=== PATIENT | female | born 1975 | race African-American/Black ===

== ENCOUNTER 2020-06-18 07:37 | Emergency (ER) | payer OTHER, SELFPAY ==
--- NOTE | ~2020-06-18 | XR_ITS ---
EXAMINATION: XR chest 1V portable EXAM DATE: 06/18/2020 08:15 INDICATION: Chest pain. TECHNIQUE: Portable AP frontal chest x-ray was obtained. There is no prior study for comparison. FINDINGS: The lungs are clear. There are no pleural effusions. Cardiac silhouette is prominent but magnified on this AP technique. There is no pneumothorax suspected. The bones and soft tissues are unremarkable. There are cholecystectomy clips. IMPRESSION: No acute cardiopulmonary findings. Reviewed, dictated and finalized at location A.
--- NOTE | ~2020-06-18 | CT_ITS ---
EXAMINATION: CTA chest PE protocol DATE: 06/18/2020 09:46 INDICATION: Chest tightness, COVID positive. TECHNIQUE: Computed tomography angiography (CTA) of the chest was performed with 100 mL Omnipaque-350 intravenous contrast timed to evaluate the pulmonary arteries. Coronal maximum intensity projection 3D-reconstructions were created by the technologist. The dose-length product (DLP) was 387.26 mGy-cm. Automated exposure control and iterative reconstruction technique were employed. COMPARISON: None. FINDINGS: The pulmonary arteries are well-opacified. The areas of apparent filling defect in the righ t middle lobe pulmonary arteries appear to be related to streak artifact from contrast bolus injectio n. No pulmonary emboli are identified. No pathologically enlarged thoracic lymph nodes are identified . The heart size is normal. The lungs are free of acute airspace opacities. There is a bmaih-xf-ofkcy ate sized hiatal hernia. The gallbladder is surgically absent. IMPRESSION: 1. No pulmonary embolism or acute cardiopulmonary abnormality. Reviewed, dictated and finalized at location B.
--- NOTE | 2020-06-18 07:42 | ECG_ITS ---
Measurements Intervals [facility] [place] Rate: 91 P: 33 MD: 138 QRS: -2 QRSD: 90 T: -15 QT: 363 QTc: 448 Interpretive Statements SINUS RHYTHM BORDERLINE ST-T WAVE ABNORMALITY- INF/LAT LEADS BORDERLINE ECG Electronically Signed On 06-18-2020 11:35:17 CDT by Bryce Pradhan D.O.
[2020-06-18 07:43] VITALS: BP 204/121; PULSE 99; RESP 20; TEMP 37.1; O2SAT 98
[2020-06-18 07:49] VITALS: PULSE 96
[2020-06-18] MEDS: ASPIRIN 81 MG CHEWABLE TABLET 324 MG PO (07:51)
[2020-06-18 08:00] LABS: Basophils Absolute Auto 0.1 K/mm3 (0.0-0.1); Basophils Percent Auto 0.5 % (0.2-1.2); Eosinophils Absolute Auto 0.1 K/mm3 (0-0.3); Eosinophils Percent Auto 0.8 % (0-4.4); Hematocrit 33.9 % (37.0-47.0); Hemoglobin 10.7 g/dL (12.0-15.0); Immature Granulocyte Absolute 0.03 K/mm3 (0.00-0.031); Immature Granulocyte Percent A 0.3 % (0-0.5); Lymphocytes Absolute Auto 2.32 K/mm3 (0.9-3.2); Lymphocytes Percent Auto 23.1 % (18.3-44.2); Mean Corpuscular HGB Conc 31.6 g/dl (32-36); Mean Corpuscular Volume 79.2 fl (80-100); Mean Platelet Volume 10.2 fl (7.4-10.4); Monocytes Absolute Auto 0.5 K/mm3 (0.1-0.6); Monocytes Percent Auto 5.3 % (2.6-8.5); Platelet Count Result 416 k/mm3 (150-375); Red Blood Count 4.28 M/mm3 (4.2-5.4); Red Cell Distribution Width 15.8 % (11.5-14.5); White Blood Count 10.1 K/mm3 (4.5-10.0)
--- NOTE | 2020-06-18 08:03 | ED.CHESTPAIN ---
HPI - Chest Pain General Chief Complaint: Chest Pain Stated Complaint: covid, chest pressure Time Seen by Provider: 06/18/20 07:40 Source: RN notes reviewed History of Present Illness HPI narrative: Patient presents emergency department from home for chest pain. Patient states she is had midsternal chest pain in the upper chest for the past 2 days. States the pain waxes and wanes in intensity but never completely resolves. States the pain does not radiate. Nothing makes the pain better or worse. Patient states she did test positive for COVID-19 on 10 June as she had been in contact with somebody with COVID but is been asymptomatic. She denies any fevers or chills cough abdominal pain nausea vomiting or any other symptoms. She states she does have a history of high blood pressure and just took her blood pressure medication Related Data Allergies Allergy/AdvReac Type Severity Reaction Status Date / Time erythromycin base Allergy Unknown Difficulty Verified 06/18/20 07:47 Breathing Penicillins Allergy Unknown Difficulty Verified 06/18/20 07:47 Breathing Review of Systems Review of Systems: Narrative: Gen.: Denies fevers or chills Eyes: Denies eye pain or visual change ENT: Denies congestion Respiratory: Denies shortness of breath or cough CV: See HPI GI: Denies abdominal pain nausea, emesis or diarrhea Musculoskeletal: Denies back pain or muscle pain Neuro: Denies numbness, tingling, weakness or focal weakness Skin: Denies rash Except as documented, all other systems reviewed and negative [facility] Social History Social History Smoking status: Never smoker Alcohol intake: current Gender identity (if verbalized by the patient): Female Exam Narrative: Exam Narrative: APPEARANCE: No acute distress, nontoxic, resting in bed EYES: EOMI HEENT: Normocephalic, atraumatic, OMM RESPIRATORY: No respiratory distress Clear to auscultation bilaterally with no rhonchi wheezing or rales. Chest: Tender palpation of the bilateral anterior chest wall pain increased with deep inspiration CARDIOVASCULAR: Regular rate and rhythm without murmurs rubs or gallops. ABDOMINAL: Soft, nontender, nondistended, no rebound or guarding MUSCULOSKELETAl: Moves all extremities. No clubbing, cyanosis or edema. NEURO: Awake and alert. Following commands, speech normal, no focal deficits SKIN:: Warm, dry. No rashes lesions or abrasions PSYCHIATRIC: Normal affect/mood, Course Course Emergency Course: Patient states pain is resolved at this time Discussed with patient results of workup and diagnosis. Discussed need for follow-up with primary care, proper use of medication, and reasons to return to the emergency department. Patient understands and agrees to current treatment plan Vital Signs Vital signs: Vital Signs Temperature 98.7 F 06/18/20 07:43 Pulse Rate 99 06/18/20 07:43 Respiratory Rate 20 06/18/20 07:43 Blood Pressure 204/121 H 06/18/20 07:43 Pulse Oximetry 98 06/18/20 07:43 Temperature 98.7 F 06/18/20 07:43 Pulse Rate 84 06/18/20 13:54 Respiratory Rate 18 06/18/20 13:54 Blood Pressure 147/85 H 06/18/20 13:54 Pulse Oximetry 98 06/18/20 13:54 MDM - Chest Pain MDM Narrative Medical decision making narrative: Patient's EKGs and labs are without significant high risk changes. Cardiac risk factors reviewed. Patient is felt likely low risk for ACS and reasonable for further risk stratification testing as an outpatient. CTA shows no signs of aneurysm or pneumonia or pulmonary embolism patient is felt to be a reasonable candidate for continued evaluation as an outpatient. Pain is been constant for 2 days with 2- troponins in the ED Lab Data Result diagrams: 06/18/20 07:55 06/18/20 07:55 Labs: Lab Results 06/18/20 06/18/20 06/18/20 Range/Units 07:55 07:55 07:55 WBC 10.1 H (4.5-10.0) K/mm3 RBC 4.28 (4.2-5.4)
[2020-06-18] MEDS: MAG HYDROX/AL HYDROX/SIMETH 30 ML UDC PO (08:04)
[2020-06-18] MEDS: LIDOCAINE HCL 2% VISC SOLN 15 ML UDC PO (08:04)
[2020-06-18 08:12] LABS: INR 1.1; Prothrombin Time 13.6 Seconds (11.1-14.7)
[2020-06-18 08:13] LABS: Partial Thromboplastin Time 26.7 SECONDS (22.3-36.8)
[2020-06-18 08:17] LABS: D Dimer 0.27 ug/mL (<0.48)
[2020-06-18 08:23] LABS: Alanine Aminotransferase 16 U/L (4-35); Albumin Level 4.2 g/dL (3.5-5.1); Alkaline Phosphatase 128 U/L (38-126); Anion Gap 12.7 mmol/L (7-16); Aspartate Amino Transferase 26 U/L (14-36); Bilirubin,Total 0.6 mg/dL (0.2-1.3); Blood Urea Nitrogen 10 mg/dL (7-17); Calcium 9.1 mg/dL (8.4-10.2); Carbon Dioxide 25 mmol/L (22-30); Chloride 101 mmol/L (98-107); Estimated CRCL calculation 90 ml/min; Estimated Glomerular Filt Rate > 60; Glucose 209 mg/dL (65-105); Lipase 77 U/L (23-300); Potassium 3.7 mmol/L (3.4-5.0); Sodium 135 mmol/L (137-145)
[2020-06-18 08:29] LABS: Troponin I < 0.012 ng/mL (0.000-0.034)
[2020-06-18 09:01] VITALS: BP 174/104; PULSE 85; RESP 16; O2SAT 98
[2020-06-18 11:22] LABS: Troponin I < 0.012 ng/mL (0.000-0.034)
[2020-06-18 11:28] VITALS: BP 166/77; PULSE 100; RESP 18; O2SAT 99
[2020-06-18] MEDS: KETOROLAC 30 MG/ML VIAL (*BKC) IV PUSH (12:23)
[2020-06-18 12:25] VITALS: BP 166/77; PULSE 80; RESP 20; O2SAT 98
[2020-06-18 13:54] VITALS: BP 147/85; PULSE 84; RESP 18; O2SAT 98
== END 2020-06-18 14:19 | disposition home or self-care (01) ==
PROVIDERS: Emergency Provider Emergency Medicine; PCP Internal Medicine
DX: U07.1 COVID-19 (principal); R07.89 Other chest pain; R94.31 Abnormal electrocardiogram [ECG] [EKG]
CPT/HCPCS: 36415; 71045; 71275; 80048; 80076; 81025; 83690; 84484; 85025; 85380; 85610; 85730; 93005; 96365; 96375; 99284; A9270; J0131; J1885; Q9967

== ENCOUNTER 2021-05-31 07:25 | Outpatient (CLI) | payer OTHER, SELFPAY ==
[2021-05-31 08:02] LABS: Hematocrit 32.4 % (37.0-47.0); Hemoglobin 9.5 g/dL (12.0-15.0); Mean Corpuscular HGB Conc 29.3 g/dl (32-36); Mean Corpuscular Hemoglobin 21.9 pg (26-34); Mean Corpuscular Volume 74.7 fl (80-100); Mean Platelet Volume 10.2 fl (7.4-10.4); Platelet Count Result 473 k/mm3 (150-375); Red Blood Count 4.34 M/mm3 (4.2-5.4); Red Cell Distribution Width 17.8 % (11.5-14.5); White Blood Count 9.1 K/mm3 (4.5-10.0)
== END 2021-05-31 07:26 | disposition home or self-care (01) ==
LOC: ANHLAB 07:28
PROVIDERS: PCP Internal Medicine; Visit Provider Obstetrics & Gynecology
DX: D64.9 Anemia, unspecified (principal)
CPT/HCPCS: 36415; 85027

== ENCOUNTER 2021-06-05 07:48 | Outpatient (CLI) | payer OTHER, SELFPAY | END 2021-06-05 07:49 | disposition home or self-care (01) | PROVIDERS: PCP Internal Medicine; Visit Provider Obstetrics & Gynecology | DX: Z01.818 Encounter for other preprocedural examination (principal); N85.2 Hypertrophy of uterus | CPT/HCPCS: 36415; 86850; 86900; 86901 ==

== ENCOUNTER 2021-06-09 00:43 | Day surgery (SDC) | payer OTHER, SELFPAY ==
[2021-06-04 09:43] VITALS: BMI 35.4
--- NOTE | 2021-06-08 16:38 | PM.IMHP ---
H&P: HPI History of Present Illness Date/Time: 06/08/21 16:38 She has a history symptomatic fibroid uterus with menorrhagia and anemia and history of anovulatory cycles. She was diagnosed with endometritis and symptoms persisted after antibiotic treatment. She had an endometrial biopsy which showed endocervical polyp no hyperplasia or cancer. Ultrasound did show fibroid uterus which the fibroids have enlarged since her last ultrasound in 2014. She was informed that being in the menopause transition that her periods may occur irregularly and may have menstrual flow that can range from light to heavy for several year before menopause. She was given option of expectant management, endometrial ablation, trial of progesterone only control pill or Nexplanon or Depoprovera, option of IUD which she declined the above. She does have a history of anemia and is taking iron supplement. She does not want to take control pills and was told in past IUD not option due to history of ectopic. I discussed with her the IUD is not an absolute contraindication. Discussed risk of IUD. She declines and desires definitive treatment. She is scheduled for laparoscopic assisted vaginal hysterectomy. She was informed of risk of procedure to include risk of bleeding, infection, injury to other organs in the area and need to repair and or remove those organs if necessary. Risk of blood transfusion, longer than anticipated hospital stay. Risk of blood clots in the legs or lungs, risk of . She was informed that she may have multiple etiologies of her pain and their is a risk that her pain may not be completely resolved. Risk of injury to bowel or bladder and need to repair or risk of further surgery. Discussed pre and post op precautions. Her questions were answered. Chief Complaint: Heavy periods Review of Systems Review of Systems: All systems reviewed & are unremarkable except as noted in HPI and below Cardiovascular: Cardiovascular: Reports no additional cardiovascular complaints, Denies chest pain and Denies dyspnea Respiratory: Respiratory: Reports no additional respiratory complaints and Denies dyspnea Gastrointestinal: Gastrointestinal: Reports abdominal pain, Denies change in bowel habits, Denies diarrhea, Denies nausea and Denies vomiting Genitourinary: Genitourinary: Reports pelvic pain Musculoskeletal: Musculoskeletal: Reports back pain Integumentary/Breasts: Skin/Breast: Reports system reviewed and no additional complaints, except as docu Neurologic: Reports system reviewed and no additional complaints, except as documented [facility] Past Medical History Medical History Essential hypertension History of ectopic Missed Vaginal delivery x 3 1 that Surgical History Surgical History H/O bilateral breast reduction surgery History of cholecystectomy Previous section Family History Family History Mother Diabetes mellitus Hypertension Family history of congestive heart failure Family history of type 2 diabetes mellitus Grandparent Hypertension, Onset Age: 94 Family history of Alzheimer's disease, Onset Age: 94 Social History Social History Smoking status: Never smoker Alcohol intake: current Alcohol use details: 2-3 DRINKS PER MIONTH Living arrangements: with family Gender identity (if verbalized by the patient): Female Meds Home Medications and Allergies Home Medications Medication Instructions Recorded Confirmed Type amlodipine 10 mg tablet 10 mg PO DAILY #90 tablet 11/27/20 06/04/21 Rx losartan 50 mg tablet 50 mg PO DAILY #90 tablet 11/27/20 06/04/21 Rx ferrous sulfate [Iron (ferrous 325 mg PO DAILY 06/04/21 06/04/21 History sul
[2021-06-09] VITALS (13 sets, daily range): BP systolic 91–137; BP diastolic 45–77; PULSE 59–96; RESP 14–25; TEMP 36.3–37.1; O2SAT 92–100
[2021-06-09] MEDS: ACETAMINOPHEN 500 MG TABLET 1000 MG PO (06:32)
[2021-06-09] MEDS: LACTATED RINGERS 1,000 ML 30 ML IV CONT ×2 (06:37→10:49)
[2021-06-09] MEDS: KETOROLAC 15 MG/ML VIAL (*BKC) IV PUSH (06:38)
--- NOTE | 2021-06-09 07:04 | WPDHPUPDATE1 ---
History and Physical Update Update Date/Time: 06/09/21 07:04 History and Physical has been reviewed, including an updated exam of the patient. There are NO changes in the patient's condition. Risks, benefits, and alternatives have been discussed and questions answered. Patient agrees to proceed with procedure.
[2021-06-09 07:17] LABS: Beta HCG Quantitative < 2.39 mIU/ML
[2021-06-09] MEDS: ceFAZolin 2 GM/D5W 50 ML 2 GM/50 ML BAG IVPB (07:25)
[2021-06-09] MEDS: SCOPOLAMINE 1.5 MG PATCH TRANSDERM (07:46)
[2021-06-09] MEDS: BUPIVACAINE HCL 0.5% PF 30 ML VIAL INFILTRATE (07:56)
--- NOTE | 2021-06-09 11:09 | PM.OP ---
Procedure Note - Brief Procedure Note - Brief Date of procedure: 06/09/21 Pre-op diagnosis: abn uterine bleeding 1. Fibroid uterus symptomatic 2. menorrhagia.3. anemia Post-op diagnosis: same Procedure performed: 1.Robotic assisted laparoscopic hysterectomy with bilateral salpingectomy 2. Lysis of adhesions. Anesthesia: GETA Surgeon: Aden Garcia MD Estimated blood loss (mL): 20 IV fluids (mL): 1,300 Urine output (mL): 325 Drains: No Packing: No Pathology: yes (uterus with cervix and right and left fallopian tubes) Complications: No immediate complications Condition: stable Disposition: floor Findings: Adhesions of omentum to mid abdominal wall. Uterus enlarged. Normal fallopian tubes and ovaries.
[2021-06-09] MEDS: HYDROmorphone HCL INJ (*CRX) 1 MG/ML SYR 0.5 MG IV PUSH ×2 (11:51→12:07)
--- NOTE | 2021-06-09 12:04 | W.PM.PROC2 ---
Procedure Note - Detailed Date of Procedure 06/09/21 Pre-op Diagnosis abn uterine bleeding Post-op Diagnosis other ( Pelvic adhesions.) Procedure Performed 1.Robotic assisted laparoscopic vaginal hysterectomy with bilateral salpingectomy 2. Lysis of adhesions. Surgeon Aden Garcia MD [facility] Dequan Garcia Anesthesia general Indications patient with a history of symptomatic fibroid uterus with intermittently heavy periods and anemia. Normal endometrial biopsy. Patient declined all other options and is not a good candidate for combined control pills due to her medical history and not an optimal candidate for IUD. She desired definitive treatment with hysterectomy. Findings Large band of adhesions from the omentum to the middle of the abdomen below the umbilicus. Small adhesion of the left adnexa to the left sidewall. This was lysed to free up the left fallopian tube. The uterus was enlarged. The right and left ovary were normal appearing. The right and left fallopian tubes were normal appearing. Uterus measured 166 grams. Description of Procedure After informed consent was obtained patient was taken to the operating room and general endotracheal anesthesia was administered. She was placed in low lithotomy position and prepped and draped in sterile fashion. Prior to being prepped and draped and exam under anesthesia was performed and no masses were palpated uterus palpated to be approximately 10 week size. Attention was then turned to the vagina. A Plunkett catheter had been placed in bladder. Weighted speculum was placed in the vagina. The anterior vaginal wall was retracted with a retractor. A single-tooth tenaculum was placed on the anterior lip of the cervix the uterus was sounded to 9cm the cervix was dilated with a dilator. A size 8 uterine manipulator was inserted and the bulb inflated. A 3.5 cm colp cup was secured in the vagina. Prior to securing the cup the single-tooth tenaculum was removed from the cervix. Attention was then turned to the abdomen with sterile glove a horizontal incision was made 2cm above the umbilicus with the scalpel. The subcutaneous tissue was dissected down with S retractors the anterior fascia was grabs and incised the posterior fascia was then grasped and incised and the peritoneal was entered. The area was palpated with the finger and there was no adhesions at that site that was palpated there were some what omental adhesions to the mid abdomen that was palpated. A Hisson some port was inserted into abdomen after the fascial edges were secured with 0 Vicryl. The 0 Vicryl was secured to the port. A pneumoperitoneum of 15 mm per mercury was obtained and the robotic camera was inserted into this port. Attention was then turned to the left side of the abdomen, lidocaine injected subcutaneously and an 8mm robotic port was inserted under laparoscopic visualization. Attention was then turned to the right side parallel to this and lidocaine was injected and an incision was made and a 8mm robotic port was inserted under laparoscopic visualization. Superior and medial to this a carpenter assistant port was inserted under laparoscopic visualization. Endo Anayeli were then used to remove adhesions of the omentum to the abdominal wall that was immediately beneath the supra umbilical port. Hemostasis was noted. The patient was placed in Trendelenburg to allow the intestinal organs out of the pelvis. The robotic arms were then attached to the ports. Attention was then turned to the surgery console. Attention was turned to the right round ligament which was cauterized and cut the anterior leaf of the broad ligament was further dissected anteriorly to the vesicouterine peritoneum. Some adhesions of the bladder from the prior was lysed.The bladder was dissected from the lower uterine segment anteriorly attention was then attention was turned to the right adnexa. The right fallopian tube was cauterized from th
[2021-06-09] MEDS: ONDANSETRON INJ 4 MG/2 ML VIAL IV PUSH (12:16)
--- NOTE | 2021-06-09 12:44 | SUR.PHASEI ---
[id number] sbar faxed floor notified
[2021-06-09] MEDS: DEXTROSE 5%/LACTATED RINGERS 1,000 ML 125 ML IV CONT (13:57)
--- NOTE | 2021-06-09 14:28 | PC.NURSE ---
1307-This patient, Deyanira Jackson, was admitted to OB 2nd Floor Room 289-00. Patient/family oriented to hospital policies and general routines including ID bracelet, bed and alarms, visiting hours, pain management, procedures, bathroom and other care routines, personal items, smoking policy, room service/diet, and visiting hours. Information on how to activate the Rapid Response Team has been discussed. Patient/Family are encouraged to report perceived risks to care and to ask questions if they do not understand what they are told or what they should do.
[2021-06-09] MEDS: KETOROLAC 30 MG/ML VIAL (*BKC) IV PUSH (16:34)
[2021-06-10 01:15] VITALS: BP 135/63; PULSE 90; RESP 16; TEMP 37.1; O2SAT 97
[2021-06-10 03:30] VITALS: BP 140/69; PULSE 84; RESP 16; TEMP 37.1; O2SAT 96
[2021-06-10] MEDS: IBUPROFEN 600 MG TABLET PO (04:20)
[2021-06-10 09:00] VITALS: BP 106/78; PULSE 85; RESP 16; TEMP 36.9; O2SAT 100
[2021-06-10 09:30] VITALS: PULSE 85; RESP 16; O2SAT 100
[2021-06-10] MEDS: LOSARTAN POTASSIUM 50 MG TABLET PO (09:32)
[2021-06-10] MEDS: HYDROcodone/acetaminophen (*CRX) 5-325 MG TABLET 1 TAB PO (09:35)
[2021-06-10] MEDS: amLODIPine BESYLATE 5 MG TABLET 10 MG PO (09:35)
[2021-06-10] MEDS: KETOROLAC 10 MG TABLET PO (11:07)
== END 2021-06-10 15:59 | disposition home or self-care (01) ==
LOC: ANHSURGERY 07:48 → ANHOB2 17:29
PROVIDERS: Anesthesiology; PCP Internal Medicine; Visit Provider Obstetrics & Gynecology
PROC: (CPT 58552; principal; 2021-06-09 07:30)
DX: N92.1 Excessive and frequent menstruation with irregular cycle (principal); D64.9 Anemia, unspecified; N80.0 Endometriosis of uterus; D25.9 Leiomyoma of uterus, unspecified; N73.6 Female pelvic peritoneal adhesions (postinfective); I10 Essential (primary) hypertension
CPT/HCPCS: 58552; S2900; 36415; 84702; 86850; 86900; 86901; 88307; 99199; A9270; J0131; J0690; J1100; J1170; J1885; J2250; J2405; J2704; J2710; J7030; J7120; J7121

== ENCOUNTER 2022-09-14 00:40 | Day surgery (SDC) | payer OTHER, SELFPAY ==
[2022-08-29 14:10] VITALS: BMI 37.4
[2022-09-14 06:53] VITALS: BP 143/85; PULSE 99; RESP 18; TEMP 36.6; O2SAT 99
[2022-09-14] MEDS: LACTATED RINGERS 1,000 ML 150 ML IV CONT (07:02)
[2022-09-14 07:06] LABS: Glucose Point of Care 197 mg/dl (65-105)
--- NOTE | 2022-09-14 07:33 | WPDANESEPPF ---
Anes - Initial Pre Proc Eval Procedure: Operation Date: 09/14/22 08:00 Proposed Procedures p Screening Colonoscopy - Michael Veras MD Date/Time: 09/14/22 07:33 Surgeon: Michael Veras MD Pre Op Diagnosis: neoplasm screening Patient Data Age: 47 Gender: F Height: 1.52 m Weight: 88.1 kg Last Vital Signs Temp 97.9 F 09/14/22 06:53 Pulse 99 09/14/22 06:53 Resp 18 09/14/22 06:53 BP 143/85 H 09/14/22 06:53 Pulse Ox 99 09/14/22 06:53 O2 Del Method Room Air 09/14/22 06:53 Allergies Allergy/AdvReac Type Severity Reaction Status Date / Time shellfish derived Allergy Severe Swelling Verified 09/14/22 06:52 of Lip/Tongue/Throat erythromycin base Allergy Unknown Difficulty Verified 09/14/22 06:52 Breathing Penicillins Allergy Unknown Difficulty Verified 09/14/22 06:52 Breathing Home Medications Medication Instructions Recorded Confirmed Type amlodipine 10 mg tablet 10 mg PO DAILY #90 tabs 11/27/20 08/29/22 Rx losartan 50 mg tablet 50 mg PO DAILY #90 tabs 11/27/20 08/29/22 Rx atorvastatin 40 mg tablet 40 mg PO HS 08/29/22 08/29/22 History metformin 500 mg tablet 500 mg PO BID 08/29/22 08/29/22 History trazodone 50 mg tablet 25 mg PO HS 08/29/22 08/29/22 History Laboratory Tests 09/14/22 07:03 POC Capillary Glucose 197 mg/dl H mg/dl (65-105) Patient hx anesthesia problems: none Family hx anesthesia problems: none Results Review: All pre-operative results and documents have been reviewed as part of the pre-operative evaluation. [facility] Past Medical History Medical History Essential hypertension History of ectopic Missed Vaginal delivery x 3 1 that Surgical History Surgical History H/O bilateral breast reduction surgery History of cholecystectomy Previous section S/P partial hysterectomy Family History Family History Mother Diabetes mellitus Hypertension Family history of congestive heart failure Family history of type 2 diabetes mellitus Grandparent Hypertension, Onset Age: 94 Family history of Alzheimer's disease, Onset Age: 94 Social History Social History Smoking status: Never smoker Alcohol intake: current Drinks per week: 1 Alcohol use details: 2-3 DRINKS PER MIONTH Substance use: former Substance use type: marijuana Living arrangements: with family Gender identity (if verbalized by the patient): Female Spiritual care concerns: No Anes - Eval Final PreProcedure Day of Procedure 09/14/22 07:33 Patient weight: obese Heart: regular rate and rhythm Lungs: clear to auscultation Airway: Mallampati scale class II Neurological: alert and oriented Last oral intake: >/= 8 hours ASA classification: III Emergent: no Anesthetic plan: proceed Anesthesia type and monitoring: general GIVS and standard monitoring Results Review: All pre-operative results and documents have been reviewed as part of the pre-operative evaluation. Informed Consent: The patient's anesthetic plan and its attendant risks and benefits were discussed with the patient/family/POA. Questions were solicited and answers provided to the satisfaction of the patient/family/POA.
--- NOTE | 2022-09-14 07:58 | PM.HPGS ---
History of Present Illness History of Present Illness Consent: Risks, benefits, and alternatives have been discussed and questions answered. Patient agrees to proceed with procedure. Chief complaint: neoplasm screening Narrative: Deyanira Jackson is a 47 year old female here for first screening colonoscopy Review of Systems Constitutional: Constitutional: Denies headache(s) and Denies weakness Eyes: Eyes: Denies blurry vision ENT: Reports Normal hearing present, Denies headache(s) and Denies neck pain Cardiovascular: Cardiovascular: Denies chest pain and Denies dyspnea Respiratory: Respiratory: Denies dyspnea Gastrointestinal: Gastrointestinal: Reports no additional gastrointestinal complaints Genitourinary: Genitourinary: Denies dysuria Musculoskeletal: Musculoskeletal: Denies neck pain Integumentary/Breasts: Skin/Breast: Denies dry skin Neurologic: Reports Normal hearing present, Denies headache(s) and Denies weakness Psychiatric: Psychiatric: Denies anxiety Endocrine: Endocrine: Denies change in body appearance Hematologic/Lymphatic: Hematologic/Lymphatic: Denies easy bleeding Allergic/Immunologic: Allergic/Immunologic: Denies urticaria PMFSH Past Medical History Medical History (Updated 09/14/22 @ 07:58 by Michael Veras MD) Colon cancer screening Essential hypertension History of ectopic Missed Vaginal delivery x 3 1 that Surgical History Surgical History H/O bilateral breast reduction surgery History of cholecystectomy Previous section S/P partial hysterectomy Family History Family History Mother Diabetes mellitus Hypertension Family history of congestive heart failure Family history of type 2 diabetes mellitus Grandparent Hypertension, Onset Age: 94 Family history of Alzheimer's disease, Onset Age: 94 Social History Social History Smoking status: Never smoker Alcohol intake: current Drinks per week: 1 Alcohol use details: 2-3 DRINKS PER MIONTH Substance use: former Substance use type: marijuana Living arrangements: with family Gender identity (if verbalized by the patient): Female Spiritual care concerns: No Meds Home Medications and Allergies Home Medications Medication Instructions Recorded Confirmed Type amlodipine 10 mg tablet 10 mg PO DAILY #90 tabs 11/27/20 08/29/22 Rx losartan 50 mg tablet 50 mg PO DAILY #90 tabs 11/27/20 08/29/22 Rx atorvastatin 40 mg tablet 40 mg PO HS 08/29/22 08/29/22 History metformin 500 mg tablet 500 mg PO BID 08/29/22 08/29/22 History trazodone 50 mg tablet 25 mg PO HS 08/29/22 08/29/22 History Allergies Allergy/AdvReac Type Severity Reaction Status Date / Time shellfish derived Allergy Severe Swelling Verified 09/14/22 06:52 of Lip/Tongue/Throat erythromycin base Allergy Unknown Difficulty Verified 09/14/22 06:52 Breathing Penicillins Allergy Unknown Difficulty Verified 09/14/22 06:52 Breathing Vital Signs Vital Signs - 24 hr 09/14/22 06:53 Temperature 97.9 F Pulse Rate 99 Respiratory Rate 18 Blood Pressure 143/85 H Pulse Oximetry 99 Oxygen Delivery Room Air Exam Const: General: comfortable and no acute distress HENMT: Face/Nose/Sinus: Normal nares present Eyes: General: appearance normal, both eyes and all related structures Neck: Neck: no JVD Resp: Auscultation: clear to auscultation bilaterally Cardio: Rate: regular rate Rhythm: regular rhythm GI: Inspection: non-distended GI Palp: Yes Soft to palpation Skin: General skin exam: normal color Neuro: General: gait normal Speech: normal speech Extrem: General: normal to inspection Psych: Mental Status: mental status grossly normal Assessment and Plan
[2022-09-14 08:24] VITALS: BP 133/82; PULSE 81; RESP 28; O2SAT 100
[2022-09-14 08:34] VITALS: BP 149/93; PULSE 79; RESP 18; O2SAT 100
[2022-09-14 08:44] VITALS: BP 157/96; PULSE 81; RESP 15; O2SAT 100
== END 2022-09-14 09:10 | disposition home or self-care (01) ==
PROVIDERS: PCP Internal Medicine; Visit Provider Internal Medicine Gastroenterology
PROC: 0DJD8ZZ Inspection of Lower Intestinal Tract, Via Natural or Artificial Opening Endoscopic (ICD-10-PCS; CPT 45378; principal; 2022-09-14 08:00)
DX: Z12.11 Encounter for screening for malignant neoplasm of colon (principal); K64.8 Other hemorrhoids; I10 Essential (primary) hypertension; Z79.84 Long term (current) use of oral hypoglycemic drugs; E66.9 Obesity, unspecified; Z68.37 Body mass index [BMI] 37.0-37.9, adult
CPT/HCPCS: 45378; 82948; J2704; J7120

== ENCOUNTER 2023-01-17 03:05 | Emergency (ER) | payer BC, SELFPAY ==
--- NOTE | ~2023-01-17 | CT_ITS ---
CT of the Abdomen and Pelvis: Indication: Abdominal pain Technique: 2.5 mm axial scans were obtained through the abdomen and pelvis following intravenous adm inistration of 100 cc of Omnipaque 350. Dose reduction technique was used on this scan by utilizing a utomated exposure control and iterative reconstruction technique. The dose-length product (DLP) was 9 42.28 mGy-cm. COMPARISON: 03/08/2017 Findings: Scans through the lung bases are unremarkable. Small to small moderate hiatal hernia prese nt. The liver, spleen, pancreas, adrenals and kidneys are within normal limits. Cholecystectomy clips pre sent. No evidence of aortic aneurysm. No lymphadenopathy. No bowel obstruction or bowel wall thickening. There is no evidence to suggest acute appendicitis. Images through the pelvis were performed. Urinary bladder unremarkable. No adnexal mass seen. No asci césar. Impression: No acute reality. Small to moderate hiatal hernia, unchanged. Reviewed, dictated and finalized at [facility]. GROWER Impression: No acute reality. Small to moderate hiatal hernia, unchanged.
[2023-01-17 03:08] VITALS: BP 171/112; PULSE 80; RESP 16; TEMP 36.6; O2SAT 98
--- NOTE | 2023-01-17 04:08 | ED.ABDPAIN ---
HPI - Abdominal Pain General Chief Complaint: Abdominal Pain Stated Complaint: abdominal pain Time Seen by Provider: 01/17/23 04:00 Source: patient and RN notes reviewed Mode of arrival: ambulatory Limitations: no limitations History of Present Illness HPI narrative: This is a 47 year old female who presents for evaluation of lower abdominal pain. She developed pain on Monday. Her pain has been constant and it located lower abdomen and lower back pain. Her most severe pain is right lower abdomen. She has associated nausea. She also reports increased urinary frequency. She denies dysuria. She rates pain 06/29. Took ibuprofen without relief. last UTI 6 months ago Related Data Home Medications Medication Instructions Recorded Confirmed atorvastatin 40 mg tablet 40 mg PO HS 08/29/22 08/29/22 metformin 500 mg tablet 500 mg PO BID 08/29/22 08/29/22 trazodone 50 mg tablet 25 mg PO HS 08/29/22 08/29/22 Allergies Allergy/AdvReac Type Severity Reaction Status Date / Time shellfish derived Allergy Severe Swelling Verified 01/17/23 04:27 of Lip/Tongue/Throat erythromycin base Allergy Unknown Difficulty Verified 01/17/23 04:27 Breathing Penicillins Allergy Unknown Difficulty Verified 01/17/23 04:27 Breathing Review of Systems Constitutional: Constitutional: Denies weakness Cardiovascular: Cardiovascular: Denies syncope, Denies rapid heart rate, Denies irregular heart rhythm, Denies leg edema and Denies dyspnea Respiratory: Respiratory: Denies chest congestion, Denies hemoptysis, Denies excessive phlegm production and Denies dyspnea Gastrointestinal: Gastrointestinal: Reports abdominal pain, Denies hematochezia, Denies diarrhea, Reports nausea and Denies vomiting Genitourinary: Genitourinary: Denies hematuria, Reports nocturia and Denies dysuria Musculoskeletal: Musculoskeletal: Reports back pain, Denies joint swelling, Denies loss of height and Denies muscle weakness Neurologic: Denies syncope, Denies focal weakness and Denies weakness PMFSH Past Medical History Medical History Colon cancer screening Essential hypertension History of ectopic Missed Vaginal delivery x 3 1 that Surgical History Surgical History H/O bilateral breast reduction surgery History of cholecystectomy Previous section S/P partial hysterectomy Family History Family History Mother Diabetes mellitus Hypertension Family history of congestive heart failure Family history of type 2 diabetes mellitus Grandparent Hypertension, Onset Age: 94 Family history of Alzheimer's disease, Onset Age: 94 Social History Social History Smoking status: Never smoker Alcohol intake: current Drinks per week: 1 Alcohol use details: 2-3 DRINKS PER MIONTH Substance use: former Substance use type: marijuana Living arrangements: with family Gender identity (if verbalized by the patient): Female Spiritual care concerns: No Exam Const: General: no acute distress and alert Nutritional Appearance: well nourished Orientation/consciousness: patient oriented x3 Limitations: no limitations HENMT: Head: normal to inspection Eyes: EOM: EOMs intact bilaterally Neck: Neck: normal visual inspection Chest: Chest palpation & inspection: normal inspection of the chest Resp: Effort & Inspection: normal respiratory effort Auscultation: clear to auscultation bilaterally Cardio: Rate: regular rate Rhythm: regular rhythm Heart sounds: no murmurs GI: GI Palp: Yes Soft to palpation, Yes Tenderness to palpation present (GI) (RLQ, RUQ), No Guarding due to palpation present (GI) and No Rigid due to palpation Auscultation: normal bowel sounds :
[2023-01-17] MEDS: SODIUM CHLORIDE 0.9% IV 1,000 ML 999 ML IV CONT (04:33)
[2023-01-17] MEDS: MORPHINE SULFATE (*CRX) 4 MG/ML INJ IV PUSH (04:34)
[2023-01-17] MEDS: ONDANSETRON INJ 4 MG/2 ML VIAL IV PUSH (04:34)
[2023-01-17 04:48] LABS: Basophils Absolute Auto 0.1 K/mm3 (0.0-0.1); Basophils Percent Auto 0.4 % (0.2-1.2); Eosinophils Absolute Auto 0.1 K/mm3 (0-0.3); Eosinophils Percent Auto 0.7 % (0-4.4); Hematocrit 40.1 % (37.0-47.0); Hemoglobin 13.7 g/dL (12.0-15.0); Immature Granulocyte Absolute 0.05 K/mm3 (0.00-0.031); Immature Granulocyte Percent A 0.4 % (0-0.5); Lymphocytes Percent Auto 17.8 % (18.3-44.2); Mean Corpuscular HGB Conc 34.2 g/dl (32-36); Mean Corpuscular Hemoglobin 29.9 pg (26-34); Mean Corpuscular Volume 87.6 fl (80-100); Mean Platelet Volume 10.5 fl (7.4-10.4); Monocytes Absolute Auto 0.8 K/mm3 (0.1-0.6); Monocytes Percent Auto 6.2 % (2.6-8.5); Neutrophils Absolute Auto 10.1 K/mm3 (1.3-6.7); Neutrophils Percent Auto 74.5 % (45.5-73.1); Platelet Count Result 299 k/mm3 (150-375); Red Blood Count 4.58 M/mm3 (4.2-5.4); Red Cell Distribution Width 12.6 % (11.5-14.5); White Blood Count 13.5 K/mm3 (4.5-10.0)
[2023-01-17 04:55] LABS: Appearance Urine Turbid (Clear); Bacteria Urine 4+ /hpf; Bilirubin Urine Negative (Negative); Blood Urine 2+ (Negative); Color Urine Yellow (Yellow); Glucose Urine UA 3+ mg/dL (Negative); Ketones Urine Trace mg/dL (Negative); Leukocyte Esterase Ur 3+ LEU/UL (Negative); Nitrate Urine Positive (Negative); Protein Urine 2+ mg/dL (Negative); Specific Grav Ur 1.023 (1.001-1.035); Squamous Epithelial Cell Urine Occasional /hpf (Few); Urobilinogen Urine 0.2 mg/dL (<2.0); WBC Urine >100 /hpf
[2023-01-17 05:03] LABS: Add Urine Microscopic? YES
[2023-01-17 05:08] LABS: Alanine Aminotransferase 17 U/L (6-35); Albumin Level 4.1 g/dL (3.5-5.1); Alkaline Phosphatase 140 U/L (38-126); Anion Gap 6 mmol/L (8-16); Aspartate Amino Transferase 15 U/L (14-36); Bilirubin,Total 0.6 mg/dL (0.2-1.3); Blood Urea Nitrogen 12 mg/dL (7-17); Calcium 9.1 mg/dL (8.4-10.2); Carbon Dioxide 27 mmol/L (22-30); Chloride 98 mmol/L (98-107); Estimated CRCL calculation 96 ml/min; Estimated Glomerular Filt Rate > 60; Glucose 293 mg/dL (65-110); Lipase 71 U/L (23-300); Potassium 3.5 mmol/L (3.4-5.0); Sodium 131 mmol/L (137-145)
[2023-01-17 05:22] VITALS: BP 168/82; PULSE 69; RESP 16; O2SAT 99
[2023-01-17 06:31] VITALS: PULSE 71; RESP 18; O2SAT 100
[2023-01-17 07:16] VITALS: PULSE 78; RESP 18; O2SAT 100
== END 2023-01-17 07:18 | disposition home or self-care (01) ==
PROVIDERS: Emergency Provider General Practice; PCP Internal Medicine
DX: N30.90 Cystitis, unspecified without hematuria (principal); I10 Essential (primary) hypertension
CPT/HCPCS: 36415; 74177; 80053; 81001; 81025; 83690; 85025; 87077; 87086; 87186; 96365; 96367; 96375; 99284; J0131; J0696; J2270; J2405; J7030; Q9967

== ENCOUNTER 2024-11-29 11:19 | Emergency (ER) | payer BC, SELFPAY ==
[2024-11-29 11:32] VITALS: BP 157/89; PULSE 92; RESP 18; TEMP 37; O2SAT 98
--- NOTE | 2024-11-29 11:37 | ED_ITS ---
HPI - URI/Sore Throat General Chief Complaint: Upper Respiratory Infection Stated Complaint: cold symptoms Time Seen by Provider: 11/29/24 11:37 Source: patient Mode of arrival: ambulatory Limitations: no limitations History of Present Illness HPI Narrative: Deyanira is a 49-year-old female patient presenting to the clinic today with complaints of sore throat, headache, and body aches x4 days. Has had a low-grade fever of 99. Denies any chest pain or shortness of breath. No known sick contacts. MD elicited complaint: sore throat and nasal congestion Related Data Home Medications ?Medication ?Instructions ?Recorded ?Confirmed ?Last Taken ?Type atorvastatin 40 mg tablet 40 mg PO HS 08/29/22 04/03/24 09/13/22 History trazodone 50 mg tablet 25 mg PO HS 08/29/22 04/03/24 09/13/22 History empagliflozin 10 mg tablet 10 mg PO DAILY 08/24/23 04/03/24 Unknown History (Jardiance) semaglutide 0.25 mg or 0.5 mg (2 mg subcut 11/29/24 Unknown History mg/3 mL) subcutaneous pen injector (Ozempic) Allergies Allergy/AdvReac Type Severity Reaction Status Date / Time shellfish derived Allergy Severe Swelling Verified 09/18/24 13:16 of Lip/Tongue/Throat erythromycin base Allergy Unknown Difficulty Verified 09/18/24 13:16 Breathing Penicillins Allergy Unknown Difficulty Verified 09/18/24 13:16 Breathing Review of Systems Review of Systems: Pertinent positives per HPI. Patient denies any rash, visual changes, dizziness, cough, shortness of breath, chest pain, palpitations, nausea, vomiting, diarrhea, constipation, abdominal pain, or any urinary issues. [facility] Past Medical History Medical History Hiatal hernia Missed Vaginal delivery x 3 1 that Essential hypertension Surgical History Surgical History S/P laparoscopic hysterectomy (~06/09/21) [facility], Bilateral salpingectomy, lysis of adhesions. Path benign. Dr Garcia. (For: [facility]) History of cholecystectomy (~2016) H/O bilateral breast reduction surgery Previous section Family History Family History Mother Diabetes mellitus Hypertension Family history of congestive heart failure Family history of type 2 diabetes mellitus Grandparent Hypertension, Onset Age: 94 Family history of Alzheimer's disease, Onset Age: 94 Social History Social History Smoking status: Never smoker Alcohol intake: current Drinks per week: 1 Alcohol use details: 2-3 DRINKS PER MIONTH Substance use: former Substance use type: marijuana Lack of Transportation: No Lack of Food: Never True Current Housing: I Have Housing Concerned About Future Housing: No Difficulty Paying Gas/Electric Bills: No Difficulty Paying for Meds: No Currently Unemployed: No Education: Master's Degree or Higher Difficulty w/ Childcare or Family Care: No Living arrangements: with family Occupation/Education: occupation Gender identity (if verbalized by the patient): Female Sexual Orientation (if Verbalized by the Patient): Straight or Heterosexual Spiritual care concerns: No Comments At the time of my signature, I reviewed and agree with the nursing past medical, surgical, social, and family history. There is no relevant family history pertinent to the patient complaint. Exam Narrative: General: Well-developed, well nourished, in no apparent distress Head: Normocephalic, atraumatic Eyes: Pupils equally round and reactive to light bilaterally, EOM intact, sclera and conjunctive clear, no discharge, lids normal Ears: TMs intact and congested, ear canals clear, no drainage, grossly hearing normal. Nose: Nares patent, clear nasal discharge, moderate inflammation, no sinus tenderness. Mouth: Oral pharynx red without lesions or masses, good dentition, MMM. Postnasal drip Neck: Supple, trachea midline, no enlargement of anterior or posterior cervical nodes, no thyroid masses or goiter palpable. Cardio: Regular rate and rhythm, s1 and s2 normal, no murmur appreciated. Resp: Clear to auscultation bilaterally, no rhonchi, rales, wheezing or rubs Course Course Emergency Course: Portions of this record may have been created with voice recognition software. Level of Care: Express Care Visit Vital Signs Vital signs: Vital Signs Temperature 37.0 C 11/29/24 11:32 Pulse Rate 92 11/29/24 11:32 Respiratory Rate 18 11/29/24 11:32 Blood Pressure 157/89 H 11/29/24 11:32 Pulse Oximetry 98 11/29/24 11:32 Temperature 37.0 C 11/29/24 11:32 Pulse Rate 92 11/29/24 11:32 Respiratory Rate 18 11/29/24 11:32 Blood Pressure 157/89 H 11/29/24 11:32 Pulse Oximetry 98 11/29/24 11:32 Vital signs reviewed MDM - URI/Sore Throat MDM Narrative Medical decision making narrative: At the time of visit patient is resting comfortably on the exam table. Patient appears to be nontoxic. Labs: Strep test was obtained and was negative in the clinic today. We will send strep for culture. Plan: I suspect patient has URI/pharyngitis/viral syndrome. Prescription for prednisone and viscous lidocaine was sent to the pharmacy. Supportive measures were discussed with the patient and they voiced understanding discharge instructions and agrees to treatment plan. Return precautions reviewed Differential Diagnosis Differential diagnosis: Likely upper respiratory infection, otitis media, sinusitis, viral infection, bronchitis, influenza, pharyngitis and other (COVID) Discharge Plan Discharge Clinical Impression: Viral infection Upper respiratory infection Qualifiers: URI type: unspecified URI Qualified Code(s): J06.9 - Acute upper respiratory infection, unspecified Pharyngitis Qualifiers: Pharyngitis/tonsillitis etiology: unspecified etiology Qualified Code(s): J02.9 - Acute pharyngitis, unspecified Patient Disposition: Home, Self-Care Condition: Stable Instructions: Antibiotic Form, Pharyngitis (ED), Viral Syndrome (ED), Cold Symptoms (ED) Additional Instructions: Strep test was negative in the clinic today. We will send strep for culture if this comes back positive we will contact you and place you on antibiotics at that time Take prescription medications only as prescribed-prednisone and viscous li docaine Increase fluids and stay well hydrated Tylenol/motrin for pain/fever Flonase and OTC antihistamines as directed Vicks vapor rub to open sinuses Sinus rinses for congestion Cepacol spray, cough drops, throat lozenges, warm tea with honey/lemon, gargle salt water to soothe throat BRAT diet for diarrhea Clear liquids x 24 hours then advance as tolerated for nausea/vomiting Go to the ED if you develop a worsening in your condition- high fever not controlled by Tylenol or Motrin, dehydration, weakness, lethargy, shortness of breath, or chest pain. Follow up with your PCP in 3-5 days if symptoms persist. Patient Language: Ecuadorean Prescriptions: New prednisone 20 mg tablet 40 mg PO DAILY 5 Days Qty: 10 0RF lidocaine HCl [Lidocaine Viscous] 2 % solution 1 applic mucous membrane QID PRN (Reason: pain) 7 Days Qty: 100 1RF No Action Ozempic 0.25 mg or 0.5 mg (2 mg/3 mL) pen injector SUBCUT amlodipine 10 mg tablet 10 mg PO DAILY Qty: 90 3RF losartan 50 mg tablet 50 mg PO DAILY Qty: 90 3RF Jardiance 10 mg tablet 10 mg PO DAILY atorvastatin 40 mg tablet 40 mg PO HS trazodone 50 mg tablet 25 mg PO HS Follow-up/Referrals: Brandie,MD Abby [Primary Care Provider] - Stand Alone Forms: Work/School Release IP Time of Disposition: 11:48 Quality NIHSS Nursing Documentation ED NIHSS nursing documentation: reviewed/agree
[2024-11-29 11:52] LABS: EDSTREPNEGPOS1 Negative (Negative)
== END 2024-11-29 12:00 | disposition home or self-care (01) ==
PROVIDERS: Emergency Provider Nurse Practitioner Family; PCP Internal Medicine
DX: J06.9 Acute upper respiratory infection, unspecified (principal); B97.89 Other viral agents as the cause of diseases classified elsewhere
CPT/HCPCS: 87081; 87880; 99213; G0463

== ENCOUNTER 2025-06-25 22:52 | Emergency (ER) | payer BC, SELFPAY ==
--- NOTE | ~2025-06-25 | CT_ITS ---
CT of the Abdomen and Pelvis: Indication: Abdominal pain Technique: 2.5 mm axial scans were obtained through the abdomen and pelvis following intravenous adm inistration of 100 cc of Omnipaque 350. Dose reduction technique was used on this scan by utilizing a utomated exposure control and iterative reconstruction technique. The dose-length product (DLP) was 7 38.88 mGy-cm. COMPARISON: 01/17/2023 Findings: Scans through the lung bases demonstrate focal groundglass opacity in the anterior right m iddle lobe (axial image 23). The liver, spleen, pancreas, adrenals and kidneys are within normal limits. Cholecystectomy clips are present. No evidence of aortic aneurysm. No lymphadenopathy. No bowel obstruction or bowel wall thickening. There is no evidence to suggest acute appendicitis. Images through the pelvis were performed. Urinary bladder unremarkable. No pelvic mass seen. No ascit es. Impression: Focal groundglass opacity right middle lobe, which could reflect focal pneumonitis. No other significant findings. Reviewed, dictated and finalized at [facility]. Impression: Focal groundglass opacity right middle lobe, which could reflect focal pneumoni tis. No other significant findings.
--- OUTSIDE RECORDS SUMMARY | 2025-06-25 22:55 | XMS_ITS | Encounter Summary ---
Author Organization [facility] Address 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
--- OUTSIDE RECORDS SUMMARY | 2025-06-25 22:55 | XMS_ITS | Encounter Summary ---
Author Organization [facility] Address 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
--- OUTSIDE RECORDS SUMMARY | 2025-06-25 22:55 | XMS_ITS | Clinical Summary ---
Author Organization [facility] Address [address] [place] [phone] Care Team Providers Care Billet Driller Name Role Phone Unavailable Primary Care Provider Unavailabl e Social History Tobacco Use Types Packs/Day Years Used Date Smoking Tobacco: Never Assessed Comments Unknown Sex and Gender Information Value Date Recorded Sex Assigned at Not on file Legal Sex Female 4:58 AM [facility] Gender Identity Not on file Sexual Orientation Not on file Plan of Treatment Health Maintenance Due Date Last Done Comments DIABETES ANNUAL FOOT EXAM 1991 DIABETES ANNUAL RETINAL EXAM 1991 DIABETES MICROALBUMIN ANNUAL SCREEN 1991 LDL CHOLESTEROL ANNUAL 1991 HEPATITIS B VACCINES (1 of 3 - 19+ 3-dose series) 08/20 COLORECTAL SCREENING 2018 Colorectal Cancer Screening 2018 FIT-DNA Q 3 years 2018 FIT/FOBT Q 1 year 2018 Flex Sig/CT Colonography Q 5 years 2018 ZOSTER VACCINE (1 of 2) 2023 DIABETES HBA1C Q 6 MONTHS 11/08/2023 05/09/2023 BREAST CANCER SCREENING 10/09/2024 10/09/2023 INFLUENZA VACCINE (#1) 2025 DTAP/TDAP/TD VACCINES (2 - Td or Tdap) 09/02/2032 Procedures Procedure Name Priority Date/Time Associated Diagnosis Comments MAMMO 3D JUAN SCREEN BILAT W OR WO CAD Routine 10/09/2023 4:03 PM [facility] Breast cancer screening by mammogram from Last 3 Months or Most Recently Relevant to Health Maintenance Results * MAMMO SCRN BILAT 3D JUAN W OR WO CAD (10/09/2023 4:03 PM [facility]) Anatomical Region Laterality Modality Breast Bilateral Mammography 10/09/2023 4:04 PM [facility] Impressions 10/09/2023 4:21 PM [facility] : NO MAMMOGRAPHIC EVIDENCE OF MALIGNANCY. OVERALL BIRADS CATEGORY:2 (benign findings). ROUTINE SCREENING MAMMOGRAPHY IS RECOMMENDED IN 12 MONTHS. A normal letter will be sent to patient. Narrative 10/09/2023 4:21 PM [facility] EXAM: MAMMO SCRN BILAT 3D JUAN W OR WO CAD STUDY DATE: 10/09/2023 4:03 PM CLINICAL INDICATION: 48 years old female presents for baseline screening mammography. COMPARISON: None PROCEDURE: CC and MLO digital mammographic views of the bilateral breasts are obtained. Computer Aided Detection (CAD) was utilized. Tomosynthesis was done with all views. FINDINGS: Breast Density: Scattered fibroglandular densities. Right breast: There are benign calcifications in the right breast. There are no spiculated masses, suspicious microcalcifications or areas of architectural distortion in the right breast. Left breast: There are benign calcifications in the left breast. There are no spiculated masses, suspicious microcalcifications or areas of architectural distortion in the left breast. Aden Garcia MD MAMMO ORDERABLES Final Result from Last 3 Months or Most Recently Relevant to Health Maintenance Insurance [employer]
--- OUTSIDE RECORDS SUMMARY | 2025-06-25 22:55 | XMS_ITS | Clinical Summary ---
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 Gender Identity Not on file Sexual Orientation Not on file Plan of Treatment Health Maintenance Due Date Last Done Comments Hepatitis C Virus (HCV) Screening 1973 TdaP Immunization 1973 Hepatitis B Immunization (1 of 3 - 19+ 3-dose series) 1992 Pap Smear 1994 Cervical Cancer Screening (CCS) 2003 HPV/Cotest 2003 Cologuard 2018 Colonoscopy 2018 Colorectal Cancer Screening 2018 Immunochemical Fecal Occult Blood 2018 Pneumococcal Immunization (5 0+ years) (1 of 1 - PCV) 2023 Zoster Immunization (1 of 2) 2023 SARS-COV-2 Immunization ( - season) 2024 03/30/2021, 03/07/2021 Influenza Immunization (#1) 2025 Respiratory Syncytial Virus (RSV) Immunization (Adult) (1 - 1-dose 75+ series) 2048 Human Papillomavirus (HPV) Immunization Aged Out No longer eligible b ased on patient's age to complete this topic Meningococcal Immunization (ACWY) Aged Out No longer eligible b ased on patient's age to complete this topic Rotavirus Immunization Aged Out No lo nger eligible based on patient's age to complete this topic
--- OUTSIDE RECORDS SUMMARY | 2025-06-25 22:55 | XMS_ITS | Clinical Summary ---
Author Organization [facility] Address [address] [place] [address] Care Team Providers Care Technical Sales Representative Name Role Phone Abby Diego MD Primary Care Provider [phone] Allergies Active Allergy Reactions Criticality Noted Date Comments Erythromycin Diarrhea,GI Upset,He adache,Nausea and Vomiting 04/20/2000 Penicillins Anxiety,Hives,Itchin g,Palpitations, Rash,Shortness of Breath,Swelling High 04/20/1998 Shellfish Allergy Anxiety,Eyes Water & Itch,Headache,Hives,Itching,Palpita tions,Rash,Shortness of Breath,Swelling High 06/20/2020 Medications Blood Glucose Monitoring Suppl (ONE TOUCH ULTRA 2) w/Device KitIndications:Ty pe 2 diabetes mellitus with hyperglycemia, without long-term current use of insulin ([facility] HHS/[facility]) Use to check your fasting morning blood sugar daily. Okay to substitute. 1 kit 2 Active Glucose Blood test stripIndications: Type 2 diabetes mellitus with hyperglycemia, without long-term current use of insulin ([facility] HHS/HCC) Use to check your fasting morning blood sugar daily. Okay to substitute. 200 strip 11 2 Active Blood Gluc Meter Disp-Strips (BLOOD GLUCOSE METER DISPOSABLE) DeviceIndications :Type 2 diabetes mellitus with hyperglycemia, without long-term current use of insulin ([facility] HHS/HCC) Use daily to check blood glucose. Okay to substitute. 200 each 11 3 Active Lancets MiscIndications:T ype 2 diabetes mellitus with hyperglycemia, without long-term current use of insulin ([facility]) Use daily to check blood glucose. Okay to substitute. 200 each 11 3 Active Blood Glucose Monitoring Suppl (D-CARE GLUCOMETER) w/Device KitIndications:Ty pe 2 diabetes mellitus with hyperglycemia, without long-term current use of insulin ([facility]) Use daily to check blood glucose. Okay to substitute. 1 kit 3 Active Insulin Pen Needle 32G X 4 MM MiscIndications:T ype 2 diabetes mellitus with hyperglycemia, without long-term current use of insulin ([facility]) Use daily to dispense insulin. 200 each 4 3 Active losartan (COZAAR) 100 MG tabletIndications :Primary hypertension Take 1 tablet (100 mg total) by mouth daily. 30 tablet 5 Active Insulin Glargine, 1 Unit Dial, (LINDA GUARDADO) 300 UNIT/ML Solution Pen-injectorIndic ations:Type 2 diabetes mellitus with hyperglycemia, without long-term current use of insulin ([facility]) Inject 18 Units into the skin daily. 1 mL 6 5 Active atorvastatin (LIPITOR) 80 MG tabletIndications :Hyperlipidemia associated with type 2 diabetes mellitus ([facility]) Take 1 tablet (80 mg total) by mouth nightly at bedtime. 90 tablet 3 5 Active amLODIPine (NORVASC) 10 MG tabletIndications :Primary hypertension Take 1 tablet (10 mg total) by mouth daily. 30 tablet 5 Active pantoprazole EC (PROTONIX) 40 MG tabletIndications :Esophageal dysphagia,Heartbu rn Take 1 tablet (40 mg total) by mouth 2 (two) times daily before meals. 180 tablet 3 5 12/24/19 26 Active traZODone (DESYREL) 50 MG tabletIndications :Anxiety,Primary insomnia Take 1 tablet (50 mg total) by mouth nightly as needed for Sleep. 90 tablet 1 5 Active ondansetron (ZOFRAN) 4 MG tabletIndications :Type 2 diabetes mellitus with hyperglycemia, without long-term current use of insulin ([facility]) Take 1 tablet (4 mg total) by mouth every 8 (eight) hours as needed. 20 tablet 5 Active semaglutide (OZEMPIC) 1 mg/dose injection (PEN)Indications: Diabetes Mellitus Inject 1 mg into the skin once a week. Indications: Diabetes 9 mL 5 Active empagliflozin (JARDIANCE) 25 MG tabletIndications :Type 2 diabetes mellitus with hyperglycemia, without long-term current use of insulin ([facility]) TAKE 1 TABLET(25 MG) BY MOUTH DAILY 90 tablet 5 Active Active Problems Problem Noted Date Diagnosed Date Esophageal dysphagia 03/11/2024 Heartburn 03/11/2024 Regurgitation of food 03/11/2024 Type 2 diabetes mellitus wit h hyperglycemia, without long-term current use of insulin ([facility]) 09/01/2022 Hyperlipidemia associated wi th type 2 diabetes mellitus ([facility]) 09/01/2022 Hypertension associated with type 2 diabetes mellitus ([facility]) 12/21/2018 Primary insomnia 11/20/2004 Anxiety 11/20/2004 Immunizations Immunization Administration Dates Next Due Pneumococcal (Pneumovax 23) 05/09/2023 Tdap (Adacel) 09/02/2022 Family History Medical History Relation Comments Heart Disease Mother Hypertension Mother Relation Status Comments Mother Social History Tobacco Use Types Packs/Day Years Used Date Smoking Tobacco: Never Smokeless Tobacco: Never Tobacco Cessation:Counseling Given: Yes Comments:counseled by Dr Diego Alcohol Use Standard Drinks/Week Comments Yes 1.7 (1 standard drin k = 0.6 oz pure alcohol) Not weekly. Social drinking maybe a couple times a month PHQ-2 Answer Date Recorded Patient Health Questionnaire-2 Score 2 12/24/2024 Comments No Sex and Gender Information Value Date Recorded Sex Assigned at Not on file Legal Sex Female 11:04 AM CDT Gender Identity Not on file Sexual Orientation Not on file Last Filed Vital Signs Vital Sign Reading Time Taken Comments Blood Pressure 123/84 12/24/2024 3:27 PM INSURANCE SERVICE REPRESENTATIVE Pulse 85 12/24/2024 3:27 PM INSURANCE SERVICE REPRESENTATIVE Temperature 36.5 C (97.7 F) 12/24/2024 3:27 PM INSURANCE SERVICE REPRESENTATIVE Respiratory Rate 18 12/24/2024 3:27 PM INSURANCE SERVICE REPRESENTATIVE Oxygen Saturation 99% 12/24/2024 3:27 PM INSURANCE SERVICE REPRESENTATIVE Inhaled Oxygen Concentration - - Weight 86.8 kg (191 lb 6.4 oz) 12/24/2024 3:27 P M INSURANCE SERVICE REPRESENTATIVE Height 154.9 cm (5' 1) 12/24/2024 3:27 PM INSURANCE SERVICE REPRESENTATIVE Body Mass Index 36.16 12/24/2024 3:27 PM INSURANCE SERVICE REPRESENTATIVE Plan of Treatment Health Maintenance Due Date Last Done Comments Diabetes: Retinopathy Eye Exam 1991 Hepatitis B Vaccines (1 of 3 - 19+ 3-dose series) 1992 Zoster Vaccines (1 of 2) 2023 Pneumococcal Vaccine: 50+ Years (2 of 2 - PCV) 05/09/2024 05/09/2023 COVID-19 Vaccine ( - 2023- season) 2024 12/20/2021, 03/30/2021, 03/07/2021 Hemoglobin A1C 03/29/2025 12/30/2024, 10/20, 05/09/2023, Additional history exists Mammogram Screening 10/09/2025 10/09/2023, Annual Physical 10/29/2025 10/29/2024, 08/21, 08/02/2022 Lipid Panel 11/08/2025 11/08/2024, 01/18, 08/02/2022 Kidney Health Evaluation 12/24/2025 12/24/2024 DTaP, Tdap and Td Vaccines (2 - Td or Tdap) 09/02/2032 09/02/2022 Colorectal Cancer Screening Colonoscopy (10 Years) 09/14/2032 09/14/2022 Hepatitis C Completed 08/02/2022 PHQ-2 (Physician [place]) Completed 12/24/2024 Meningococcal B Vaccine Aged Out No l onger eligible based on patient's age to complete this topic Meningococcal Vaccine Aged Out No elias kavya eligible based on patient's age to complete this topic RSV Immunizations Under 20 Months Aged Out No longer eligible based on patient's age to complete this topic Procedures Procedure Name Priority Date/Time Associated Diagnosis Comments HEMOGLOBIN, GLYCOSYLATED Routine 12/30/2024 Type 2 diabetes mellitus with hyperglycemia, without long-term current use of insulin ([facility]/HCC) LIPID PANEL Routine 11/08/2024 7:14 AM INSURANCE SERVICE REPRESENTATIVE Annual physical exam General medical exam Type 2 diabetes mellitus with hyperglycemia, without long-term current use of insulin (CMS/HCC HHS/HCC) Hyperlipidemia associated with type 2 diabetes mellitus (CMS/HCC HHS/HCC) Hypertension associated with type 2 diabetes mellitus (CMS/HCC HHS/HCC) Drug therapy MAMMOGRAM GENERIC (SCAN ORDER) Routine 10/09/2023 COLONOSCOPY GENERIC (SCAN ORDER) 09/14/2022 HEPATITIS C ANTIBODY Routine 08/02/2022 11:41 AM CDT Annual physical exam Encounter for medical examination to establish care General medical exam Encounter for hepatitis C screening test for low risk patient from Last 3 Months or Most Recently Relevant to Health Maintenance Results * HEMOGLOBIN, GLYCOSYLATED (12/30/2024) HGB A1C 10.3 % [id number], [place] 12/30/2024 Abby Diego MD LABORATORY Final Result [id number], [place] [address] [facility] [address] [place] [address], * (ABNORMAL) LIPID PANEL (11/08/2024 7:14 AM INSURANCE SERVICE REPRESENTATIVE) CHOLESTEROL 266(H) <200 MG/DL 11/08/2024 4:12 PM INSURANCE SERVICE REPRESENTATIVE [facility] TRIGLYCERIDES 103 <150 MG/DL 11/08/2024 4:12 PM INSURANCE SERVICE REPRESENTATIVE [facility] HDL 53 >40 MG/DL 11/08/2024 4:12 PM INSURANCE SERVICE REPRESENTATIVE [facility] LDL-C 192(H) <100 MG/DL 11/08/2024 4:12 PM INSURANCE SERVICE REPRESENTATIVE [facility] [place] VLDL CALCULATION 21 5 - 28 MG/DL 11/08/2024 4:12 PM INSURANCE SERVICE REPRESENTATIVE [facility] [place] CHOL/HDL RATIO 5.0(H) 0.0 - 4.0 11/08/2024 4:12 PM INSURANCE SERVICE REPRESENTATIVE [facility] LDL/HDL 3.6(H) 0.41 - 2.13 11/08/2024 4:12 PM INSURANCE SERVICE REPRESENTATIVE [facility] NON HDL CHOLESTEROL 213(H) <140 MG/DL 11/08/2024 4:12 PM INSURANCE SERVICE REPRESENTATIVE [facility] 11/08/2024 7:14 AM INSURANCE SERVICE REPRESENTATIVE Abby Diego MD LABORATORY Final Result Performing Organization Address City/[facility]/ZIP Co de Phone Number [facility] [address] [place] [address], [place] [phone] * MAMMOGRAM (10/09/2023) Anatomical Region Laterality Modality Other Disrupt6 Scanned SCANNING Final Resu lt * COLONOSCOPY GENERIC (09/14/2022) 09/14/2022 Disrupt6 Scanned SCANNING Final Resu lt * HEPATITIS C ANTIBODY (08/02/2022 11:41 AM CDT) HEPATITIS C AB NON-REACTI VE NON-REACT [place] 08/02/2022 11:57 PM CDT [facility] Comment: ANTIBODIES TO HCV NOT DETECTED. DOES NOT EXCLUDE THE POSSIBILITY OF EXPOSURE TO HCV. 08/02/2022 11:4 1 AM CDT Abby Diego MD LABORATORY Final Result [facility] [address] [place] [address], [place] [phone] [id number] from Last 3 Months or Most Recently Relevant to Health Maintenance Insurance [facility] Care Teams Technical Sales Representative Relationship Specialty Start Date End Date Abby iDego MD [address] [facility] [address] [place] [address] PCP - General INTERNAL MEDICINE 08/02/22
--- OUTSIDE RECORDS SUMMARY | 2025-06-25 22:55 | XMS_ITS | Encounter Summary ---
Author Organization [facility] Address [address] [place] [address] Care Team Providers Care Button And Buckle Maker Name Role Phone Unavailable Primary Care Provider Unavailabl e Encounter Details Date Type Department Care Team (Late st Contact Info) Description 08/28/2000 Outpatient Historical HIS [facility] Chan, Fahad Maravilla MD [address] [place] [phone] Unspecified ectopic (Primary Dx) Social History Tobacco Use Types Packs/Day Years Used Date Smoking Tobacco: Never Assessed Comments Unknown Sex and Gender Information Value Date Recorded Sex Assigned at Not on file Legal Sex Female 4:58 AM MANAGEMENT EXPERT Gender Identity Not on file Sexual Orientation Not on file documented as of this encounter Plan of Treatment Not on file documented as of this encounter Visit Diagnoses Diagnosis Unspecified ectopic - Primary documented in this encounter
--- OUTSIDE RECORDS SUMMARY | 2025-06-25 22:55 | XMS_ITS | Clinical Summary ---
Author Organization [facility] Address [address] [place] [address] Care Team Providers Care Summer Child Caregiver Name Role Phone Arash Ennis MD Primary Care Provider [phone] Source Comments [facility],non-owned Affiliates and Associated Physician Practices is amultiple site organization consisting of ambulatory clinics and hospital sitesin [place], [place], [place] and [place]. This disclosure is being madepursuant to the Care Everywhere program and may not contain all information available regarding this patient. Last updated 18.[facility] Social History Tobacco Use Types Packs/Day Years Used Date Smoking Tobacco: Never Assessed Comments Unknown Sex and Gender Information Value Date Recorded Sex Assigned at Not on file Legal Sex Female 5:01 AM MATERIAL PLANNING ANALYST Gender Identity Not on file Sexual Orientation Not on file Plan of Treatment Health Maintenance Due Date Last Done Comments COLOGUARD (AGES 45-75) - COL ON CA SCREENING 1973 COLON MONITORING 1973 COLONOSCOPY - COLON CA SCREENING 1973 CT COLONOGRAPHY - COLON CA SCREENING 1973 Colorectal Cancer Screening 1973 FIT - COLON CA SCREENING 1973 FLEX SIG - COLON CA SCREENING 1973 LIPID TESTING 1973 MAMMOGRAM 1973 HIV SCREENING 1988 HEPATITIS C SCREENING 08/30/1991 DTAP/TDAP/TD VACCINES (1 - Tdap) 1992 HEPATITIS B VACCINE (1 of 3 - 19+ 3-dose series) 1992 PNEUMOCOCCAL VACCINE 50+ (1 of 1 - PCV) 2023 ZOSTER VACCINE (1 of 2) 2023 COVID-19 VACCINE (1 - 2023-2 5 season) 2024 DEPRESSION SCREENING 11/20/2024 INFLUENZA VACCINE (#1) 2025 HIB VACCINE Aged Out No longer eligi ble based on patient's age to complete this topic HPV VACCINE Aged Out No longer eligi ble based on patient's age to complete this topic MENINGOCOCCAL (Group B) VACC INE SHARED DECISION-MAKING Aged Out No longer eligibl e based on patient's age to complete this topic MENINGOCOCCAL GROUPS A/C/Y/W VACCINE Aged Out No longer eligible b ased on patient's age to complete this topic Insurance [employer] Care Teams Summer Child Caregiver Relationship Specialty Start Date End Date Arash Ennis MD [address] [place] [address] PCP - General 06/10/21
--- OUTSIDE RECORDS SUMMARY | 2025-06-25 22:55 | XMS_ITS | Continuity of Care Document ---
Author Organization [facility] Address [address] [place] [address] Phone Care Team Providers Care Predatory Hunter Name Role Phone Jessica Reveles DO Unavailable Unavailable Procedures Procedure Date Reading Of Occ Med Test (PPD) 3 TB intradermal test Flu Vaccine, Split, 3+yrs, IM 3 [facility] Drug Screen Collection Medical Review Officer Advance Directives Directive Yes / No Effective Date File Name No Information Encounters Encounter Description Practice Location Reason(s) For Visit Diagnoses Date Provider Providers Copied on Encounter [facility], [address], [id number], tel:[phone] [facility] Occupational Health Examination 3 Anushka Lopez. [address] [facility], [address], [id number] , [place]. tel: [phone] [facility], [address] [place] [address], [id number], [place] [phone] [facility] Occupational Health Examination 3 Anushka Lopez. [address] [facility], [address], [id number] , [place]. tel: [phone] [facility], [address] [place] [address], [id number], [place] tel:[phone] [facility] Occupational Health Examination 0-201 3 Anushka Lopez. [address] [facility], [address], [place], [place], [id number] , [place]. tel: [phone] Family History Family Member Type Diagnosis Age At Onset No Information Payers Payer name Insurance type Covered republican ID Amadeo beltran(s) [facility] [id number] Social History Type Description Quantity Date Captured Comments Sex Female Smoking Status No Information Chief Complaint And Reason For Visit No Information Reason For Referral Reason For Referral No Information History Of Present Illness Encounter Date Complaint History Of Prese nt Illness No Information Functional Status Date Functional Assessmen t No Information Instructions Date Instruction Additional Infor mation No Information Assessments Type Assessment Date No Information Patient Care Teams Name Effective Dates (start - stop) Status Members No Information
--- OUTSIDE RECORDS SUMMARY | 2025-06-25 22:55 | XMS_ITS | Encounter Summary ---
Author Organization [facility] Address [address] [place] [address] Care Team Providers Care Project Admin Name Role Phone Unavailable Primary Care Provider Unavailabl e Encounter Details Date Type Department Care Team (Late st Contact Info) Description 10/06/2000 Outpatient Historical HIS [facility] Chan, Fahad Maravilla MD [address] [place] [phone] Unspecified ectopic (Primary Dx) Social History Tobacco Use Types Packs/Day Years Used Date Smoking Tobacco: Never Assessed Comments Unknown Sex and Gender Information Value Date Recorded Sex Assigned at Not on file Legal Sex Female 4:58 AM URBAN SOCIOLOGIST Gender Identity Not on file Sexual Orientation Not on file documented as of this encounter Plan of Treatment Not on file documented as of this encounter Visit Diagnoses Diagnosis Unspecified ectopic - Primary documented in this encounter
--- OUTSIDE RECORDS SUMMARY | 2025-06-25 22:55 | XMS_ITS | Encounter Summary ---
Author Organization [facility] Address [address] [place] [address] Care Team Providers Care E Commerce Architect Name Role Phone Unavailable Primary Care Provider Unavailabl e Encounter Details Date Type Department Care Team (Late st Contact Info) Description 09/29/2000 Outpatient Historical HIS [facility] Chan, Fahad Maravilla MD [address] [place] [phone] Unspecified ectopic (Primary Dx) Social History Tobacco Use Types Packs/Day Years Used Date Smoking Tobacco: Never Assessed Comments Unknown Sex and Gender Information Value Date Recorded Sex Assigned at Not on file Legal Sex Female 4:58 AM RETAIL REPRESENTATIVE Gender Identity Not on file Sexual Orientation Not on file documented as of this encounter Plan of Treatment Not on file documented as of this encounter Visit Diagnoses Diagnosis Unspecified ectopic - Primary documented in this encounter
--- OUTSIDE RECORDS SUMMARY | 2025-06-25 22:55 | XMS_ITS | Encounter Summary ---
Author Organization [facility] Address [address] [place] [address] Care Team Providers Care Top Precipitator Operator Name Role Phone Unavailable Primary Care Provider Unavailabl e Encounter Details Date Type Department Care Team (Late st Contact Info) Description 08/30/2000 Emergency [facility] Mauricio Magana DO [address] [place] [address] Er, Authorized P NO ADDRESS ON FILE Unspecified symptom associated with female genital organs (Primary Dx) Social History Tobacco Use Types Packs/Day Years Used Date Smoking Tobacco: Never Assessed Comments Unknown Sex and Gender Information Value Date Recorded Sex Assigned at Not on file Legal Sex Female 4:58 AM AUTOMATION QTP TESTER Gender Identity Not on file Sexual Orientation Not on file documented as of this encounter Plan of Treatment Not on file documented as of this encounter Visit Diagnoses Diagnosis Unspecified symptom associated with female genital organs- Primary documented in this encounter
--- OUTSIDE RECORDS SUMMARY | 2025-06-25 22:55 | XMS_ITS | Encounter Summary ---
Author Organization [facility] Address [address] [place] [address] Care Team Providers Care Consumer Analyst Name Role Phone Abby Diego MD Primary Care Provider [phone] Encounter Details Date Type Department Care Team (Latest Contact Info) Description 07/04/2024 Roovyn Message Enc [facility] - [place] [address] [address] [place], [place] [id number] [facility], [facility] Provider FOLLOW UP APPOINTMENT Social History Tobacco Use Types Packs/Day Years Used Date Smoking Tobacco: Never Smokeless Tobacco: Never Comments:counseled by Dr Keesha clark Alcohol Use Standard Drinks/Week Comments Yes 1.7 (1 standard drin k = 0.6 oz pure alcohol) Not weekly. Social drinking maybe a couple times a month PHQ-2 Answer Date Recorded Patient Health Questionnaire-2 Score 0 09/13/2023 Comments No Sex and Gender Information Value Date Recorded Sex Assigned at Not on file Legal Sex Female 11:04 AM CDT Gender Identity Not on file Sexual Orientation Not on file documented as of this encounter Plan of Treatment Not on file documented as of this encounter Visit Diagnoses Not on filedocumented in this encounter Additional Health Concerns Assessment Noted Time PHQ-9 Depression Total Score: 0 09/13/20 23 5:15 PM CDT documented as of this encounter Care Teams Consumer Analyst Relationship Specialty Start Date End Date Abby Diego MD [address] [facility] [address] [place], [place] [id number] PCP - General INTERNAL MEDICINE 08/02/22 documented as of this encounter
[2025-06-25 22:56] VITALS: BP 207/95; PULSE 103; RESP 16; TEMP 36.4; O2SAT 98
[2025-06-26] VITALS (28 sets, daily range): BP systolic 128–167; BP diastolic 70–98; O2SAT 96–100
[2025-06-26 02:14] LABS: Hematocrit 41.9 % (37.0-47.0); Hemoglobin 13.7 g/dL (12.0-15.0); Immature Granulocyte Percent A 0.2 % (0-0.5); Lymphocytes Absolute Auto 2.45 K/mm3 (0.9-3.2); Mean Corpuscular HGB Conc 32.7 g/dl (32-36); Mean Corpuscular Hemoglobin 28.8 pg (26-34); Mean Corpuscular Volume 88.0 fl (80-100); Nucleated Red Blood Cells Absolute Auto 0.000 K/mm3 (0.0-0.012); Nucleated Red Blood Cells Perc 0.0 % (0.0-0.2); Platelet Count Result 272 k/mm3 (150-375); Red Blood Count 4.76 M/mm3 (4.2-5.4); White Blood Count 12.7 K/mm3 (4.5-10.0)
--- NOTE | 2025-06-26 02:15 | ED.ABDPAIN ---
HPI - Abdominal Pain General Chief Complaint: Abdominal Pain Stated Complaint: RLQ pain Time Seen by Provider: 06/26/25 02:04 Source: patient Mode of arrival: ambulatory Limitations: no limitations History of Present Illness HPI narrative: 49-year-old female presents with right lower quadrant abdominal pain of 2 days duration but she states is getting worse. She states it radiates towards her groin. He says it was initially dull and intermittent but now has become constant. No fevers. She had not been nauseated but she does feel this way now. Denies any vomiting or diarrhea. She cannot exactly recall her last bowel movement but thinks it might of been 2 days ago. She states her bowel movements are irregular at baseline. Earlier today she felt like she needed to go did not/was unable to. Denies any bloody stools. She states the pain feels somewhat similar when she was having issues with her gallbladder but she is status post cholecystectomy and that the pain is in a different location this time. Not on anticoagulation. Last oral intake was at approximately 11 30, lunch. She states she does not seem to be passing gas today. She also notes her right arm has been hurting. Has a history of hypertension for which she is on medication. Related Data Home Medications ?Medication ?Instructions ?Recorded ?Confirmed ?Last Taken ?Type atorvastatin 40 mg tablet 40 mg PO HS 08/29/22 04/03/24 09/13/22 History trazodone 50 mg tablet 25 mg PO HS 08/29/22 04/03/24 09/13/22 History empagliflozin 10 mg tablet 10 mg PO DAILY 08/24/23 04/03/24 Unknown History (Jardiance) semaglutide 0.25 mg or 0.5 mg (2 mg subcut 11/29/24 Unknown History mg/3 mL) subcutaneous pen injector (Ozempic) Allergies Allergy/AdvReac Type Severity Reaction Status Date / Time shellfish derived Allergy Severe Swelling Verified 06/25/25 22:58 of Lip/Tongue/Throat erythromycin base Allergy Unknown Difficulty Verified 06/25/25 22:58 Breathing Penicillins Allergy Unknown Difficulty Verified 06/25/25 22:58 Breathing PMFSH Past Medical History Medical History Hiatal hernia Missed Vaginal delivery x 3 1 that Essential hypertension Surgical History Surgical History S/P laparoscopic hysterectomy (~06/09/21) RALH, Bilateral salpingectomy, lysis of adhesions. Path benign. Dr Garcia. (For: AUB) History of cholecystectomy (~2016) H/O bilateral breast reduction surgery Previous section Family History Family History Mother Diabetes mellitus Hypertension Family history of congestive heart failure Family history of type 2 diabetes mellitus Grandparent Hypertension, Onset Age: 94 Family history of Alzheimer's disease, Onset Age: 94 Social History Social History Smoking status: Never smoker Alcohol intake: current Drinks per week: 1 Alcohol use details: 2-3 DRINKS PER MIONTH Substance use: former Substance use type: marijuana Lack of Transportation: No Lack of Food: Never True Current Housing: I Have Housing Concerned About Future Housing: No Difficulty Paying Gas/Electric Bills: No Difficulty Paying for Meds: No Currently Unemployed: No Education: Master's Degree or Higher Difficulty w/ Childcare or Family Care: No Living arrangements: with family Occupation/Education: occupation Gender identity (if verbalized by the patient): Female Sexual Orientation (if Verbalized by the Patient): Straight or Heterosexual Spiritual care concerns: No Exam Narrative: GENERAL: Well-appearing, well-nourished, and in no acute distress. HEAD: Normocephalic, atraumatic. EYES: Non injected, non icteric ENT: Nares clear, no rhinorrhea or epistaxis. Gross auditory acuity intact. NECK: Supple. No meningismus. CHEST: Speaking in full sentences. No respiratory distress. HEART: Regular rate and rhythm. . ABDOMEN: Soft, nondistended. No rigidity or guarding. Not peritoneal. Localized peritonitis at the right lower quadrant. Rovsing sign negative. Patient also has some additional suprapubic tenderness. EXTREMITIES: Normal range of motion. No lower extremity edema. SKIN: Warm, dry, no rash. NEURO: No focal deficits. Alert and oriented. Answering questions. Following commands. Normal speech without aphasia or dysarthria. PSYCH: Normal mood and affect. Course Vital Signs Vital signs: Vital Signs Temperature 97.6 F 06/25/25 22:56 Pulse Rate 103 H 06/25/25 22:56 Respiratory Rate 16 06/25/25 22:56 Blood Pressure 207/95 H 06/25/25 22:56 Pulse Oximetry 98 06/25/25 22:56 Oxygen Delivery Room Air 06/25/25 22:56 Temperature 97.6 F 06/25/25 22:56 Pulse Rate 103 H 06/25/25 22:56 Respiratory Rate 16 06/25/25 22:56 Blood Pressure 140/81 06/26/25 05:01 Pulse Oximetry 98 06/26/25 05:01 Oxygen Delivery Room Air 06/25/25 22:56 MDM - Abdominal Pain MDM Narrative Medical decision making narrative: 49-year-old female presents with right lower quadrant pain of 2 days duration and that she reports is getting worse. In the emergency department she is afebrile with vital signs notable for mild tachycardia also significant hypertension at 207/95. On repeat assessment it is 166/96 without interval intervention. She reports a history of hypertension and is on medication for this. Mild leukocytosis with a slight left shift. Urinalysis concerning for urinary tract infection. Previous urine culture from 2022 grew E coli that was resistant to ampicillin but otherwise sensitive to other antibiotics tested. She has hyperglycemia without anion gap or acidosis. Sodium corrects to 136/[address] also consistent with cystitis. There is an incidentally noted a possible right middle lobe pneumonia. Given this, will choose doxycycline as antibiotic therapy. Patient given 1st dose of this in the emergency department the rest the course as prescribed. Same with pyridium. Blood pressure is normalized. Stable for discharge. Differential Diagnosis Differential diagnosis: Likely abdominal pain, acute appendicitis, calculus of kidney, constipation, diverticulitis, endometriosis, small bowel obstruction and other (Urinary tract infection, considered reproductive etiologies such is torsion/ovarian cyst etc.) Lab Data Attestation: I reviewed the patient's lab results. 06/26/25 02:08 06/26/25 02:08 Labs: Lab Results 06/26/25 06/26/25 06/26/25 Range/Units 01:45 02:08 02:11 WBC 12.7 H (4.5-10.0) K/mm3 RBC 4.76 (4.2-5.4) M/mm3 Hgb 13.7 (12.0-15.0) g/dL Hct 41.9 (37.0-47.0) % MCV 88.0 (80-100) fl MCH 28.8 (26-34) pg MCHC 32.7 (32-36) g/dl RDW 12.5 (11.5-14.5) % Plt Count 272 (150-375) k/mm3 MPV 10.3 (7.4-10.4) fl Immature Gran % (Auto) 0.2 (0-0.5) % Neut % (Auto) 73.4 H (45.5-73.1) % Lymph % (Auto) 19.4 (18.3-44.2) % [place] % (Auto) 6.1 (2.6-8.5) % Eos % (Auto) 0.6 (0-4.4) % Baso % (Auto) 0.3 (0.2-1.2) % Lymph # (Auto) 2.45 (0.9-3.2) K/mm3 [place] # (Auto) 0.8 H (0.1-0.6) K/mm3 Eos # (Auto) 0.1 (0-0.3) K/mm3 Baso # (Auto) 0.0 (0.0-0.1) K/mm3 Abs Immat Gran (auto) 0.03 (0.00-0.031) K/mm3 Absolute Neuts (auto) 9.3 H (1.3-6.7) K/mm3 Absolute Nucleated RBC 0.000 (0.0-0.012) K/mm3 Nucleated RBC % 0.0 (0.0-0.2) % Sodium 132 L (137-145) mmol/L Potassium 3.6 (3.4-5.0) mmol/L Chloride 98 (98-107) mmol/L Carbon Dioxide 25 (22-30) mmol/L Anion Gap 9 (4-12) mmol/L BUN 9 (7-17) mg/dL Creatinine 0.58 L (0.7-1.0) mg/dL Estim Creat Clear Calc Not Reportable Estimated GFR > 60 (59 - ) Glucose 334 H (65-110) mg/dL Calcium 9.1 (8.4-10.2) mg/dL Total Bilirubin 0.9 (0.2-1.3) mg/dL AST 25 (14-36) U/L ALT 19 (6-35) U/L Alkaline Phosphatase 158 H (38-126) U/L Total Protein 8.1 (6.3-8.2) g/dL Albumin 4.3 (3.5-5.1) g/dL Lipase 65 (23-300) U/L Urine Color Yellow (Yellow) Urine Appearance Cloudy H (Clear) Urine pH 5.5 (5.0-9.0) Ur Specific [place] 1.042 H (1.001-1.035) Urine Protein 2+ H (Negative) mg/dL Urine Glucose (UA) 3+ H (Negative) mg/dL Urine Ketones Negative (Negative) mg/dL Ur Blood (Man) 1+ H (Negative) Urine Nitrate Positive H (Negative) Urine Bilirubin Negative (Negative) Urine Urobilinogen 1.0 (<2.0) mg/dL Add Ur Microanalysis Reviewed Leukocyte Esterase Rfl 1+ H (Negative) CHIDI/UL Urine RBC 6-10 H (0-2) /hpf Urine WBC >100 H (0-3) /hpf Ur Squamous Epith Cells Few (Few) /hpf Urine Bacteria 4+ H /hpf Urine Casts 0-2 Urine Yeast (Budding) Present H (None) /hpf POC Urine HCG, Qual Negative (Negative) Imaging Data Radiologist's impression: ITS Impressions Abdomen/Pelvis CT 06/26/25 05:43 Impression: Focal groundglass opacity right middle lobe, which could reflect focal pneumonitis. No other significant findings. CT Abd Pelvis Stat Rad w/ contrast: Prominence of the bladder wall was concerning for cystitis. The solid organs are within normal limits. No bowel obstruction. Normal appendix. Small hiatal hernia. No fracture. Incidental findings subtle airspace opacities of the right middle lobe concerning for pneumonia. Discharge Plan Discharge Clinical Impression: Abdominal pain, RLQ, Leukocytosis, UTI (urinary tract infection), Hyperglycemia, Right middle lobe pneumonia Patient Disposition: Home Condition: Stable Instructions: Antibiotic Form, Urinary Tract Infection in Women (DC), Abdominal Pain (ED), Pneumonia (ED) Additional Instructions: Your urine showed evidence of a urinary tract infection and this was also seen on the CT scan. Incidentally there seemed to be a possible pneumonia in the right middle lobe of your lung. You were given your 1st dose of antibiotic (that covers both) in the emergency department the rest of the course has been prescribed. Pyridium/phenazopyridine can help with the pain you are experiencing from a urinary tract infection. It can discolor your urine and tears (turn them orange). Do not wear contact lenses while taking this medication. Continue taking your other medications as prescribed including your blood pressure medications. Follow-up with primary care physician. Return to the emergency department any new or worsening symptoms. Patient Language: Malian Prescriptions: New phenazopyridine 100 mg tablet 100 mg PO TID PRN (Reason: pain) 2 Days Qty: 5 0RF Rx Instructions: after meals; rec'd first dose in ED 8/7 AM doxycycline hyclate 100 mg capsule 100 mg PO BID 5 Days Qty: 9 0RF Rx Instructions: received first dose in ED 8/7 AM; start 8/7 PM No Action Ozempic 0.25 mg or 0.5 mg (2 mg/3 mL) pen injector SUBCUT prednisone 20 mg tablet 40 mg PO DAILY 5 Days Qty: 10 0RF lidocaine HCl [Lidocaine Viscous] 2 % solution 1 applic mucous membrane QID PRN (Reason: pain) 7 Days Qty: 100 1RF amlodipine 10 mg tablet 10 mg PO DAILY Qty: 90 3RF losartan 50 mg tablet 50 mg PO DAILY Qty: 90 3RF Jardiance 10 mg tablet 10 mg PO DAILY atorvastatin 40 mg tablet 40 mg PO HS trazodone 50 mg tablet 25 mg PO HS Follow-up/Referrals: Brandie,MD Abby [Primary Care Provider] - Stand Alone Forms: Work/School Release IP Time of Disposition: 04:56
[2025-06-26 02:21] LABS: Add Urine Microscopic? YES; Appearance Urine Cloudy (Clear); Budding Yeast Urine Present /hpf; Glucose Urine UA 3+ mg/dL (Negative); Leukocyte Esterase Ur 1+ LEU/UL (Negative); Need Manual Microscopic Reviewed; Nitrate Urine Positive (Negative); Non Pathogenic Casts 0-2; Specific Grav Ur 1.042 (1.001-1.035)
[2025-06-26 02:24] LABS: BEDSIDEPREGUCG Negative (Negative)
--- OUTSIDE RECORDS SUMMARY | 2025-06-26 02:25 | XMS_ITS | Continuity of Care Document ---
Author Organization [facility] Address [address] [place] [address] Phone Care Team Providers Care Digital Manager Name Role Phone Jessica Reveles DO Unavailable Unavailable Procedures Procedure Date Reading Of Occ Med Test (PPD) 3 TB intradermal test Flu Vaccine, Split, 3+yrs, IM 3 [facility] Drug Screen Collection Medical Review Officer Advance Directives Directive Yes / No Effective Date File Name No Information Encounters Encounter Description Practice Location Reason(s) For Visit Diagnoses Date Provider Providers Copied on Encounter [facility], [address], [id number], tel:[phone] [facility] Occupational Health Examination 3 Anushka Lopez. [address] [facility], [address], [id number] , [place]. tel: [phone] [facility], [address] [place] [address], [id number], [place] [phone] [facility] Occupational Health Examination 3 Anushka Lopez. [address] [facility], [address], [id number] , [place]. tel: [phone] [facility], [address] [place] [address], [id number], [place] tel:[phone] [facility] Occupational Health Examination 0-201 3 Anushka Lopez. [address] [facility], [address], [place], [place], [id number] , [place]. tel: [phone] Family History Family Member Type Diagnosis Age At Onset No Information Payers Payer name Insurance type Covered constitution party ID Aamdeo beltran(s) [facility] [id number] Social History Type Description Quantity Date Captured [...]
--- OUTSIDE RECORDS SUMMARY | 2025-06-26 02:25 | XMS_ITS | Clinical Summary ---
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 OVERALL BIRADS CATEGORY:2 (benign findings). ROUTINE SCREENING MAMMOGRAPHY IS RECOMMENDED IN 12 MONTHS. A normal letter will be sent to patient. Narrative 10/09/2023 4:21 PM PERSONAL SECRETARY EXAM: MAMMO SCRN BILAT 3D JUAN W [...]
--- OUTSIDE RECORDS SUMMARY | 2025-06-26 02:25 | XMS_ITS | Encounter Summary ---
Author Organization [facility] Address 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
--- OUTSIDE RECORDS SUMMARY | 2025-06-26 02:25 | XMS_ITS | Encounter Summary ---
Author Organization [facility] Address [address] [place] [address] Care Team Providers Care Md Do Resident Urgent Care Name Role Phone Unavailable Primary Care Provider Unavailabl e Encounter Details Date Type Department Care Team (Late st Contact Info) Description 08/28/2000 Outpatient Historical 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
--- OUTSIDE RECORDS SUMMARY | 2025-06-26 02:25 | XMS_ITS | Clinical Summary ---
Author Organization [facility] Address [address] [place] [address] Care Team Providers Care Abrasive Wheel Molder Name Role Phone Abby Diego MD Primary Care Provider [phone] Allergies Active Allergy Reactions Criticality Noted Date Comments Erythromycin Diarrhea,GI Upset,He adache,Nausea and Vomiting 04/20/2000 Penicillins Anxiety,Hives,Itchin g,Palpitations, Rash,Shortness of Breath,Swelling High 04/20/1998 Shellfish Allergy Anxiety,Eyes Water & Itch,Headache,Hives,Itching,Palpita tions,Rash,Shortness of Breath,Swelling High 06/20/2020 Medications Blood Glucose Monitoring Suppl (ONE TOUCH ULTRA 2) w/Device KitIndications:Ty pe 2 diabetes mellitus with hyperglycemia, without long-term current use of insulin ([facility] HHS/[facility]) Use to check your fasting morning blood sugar daily. Okay to substitute. 1 kit 2 Active Glucose Blood test stripIndications: Type 2 diabetes mellitus with hyperglycemia, without long-term current use of insulin ([facility] HHS/HCC) Use to check your fasting morning blood sugar daily. Okay to substitute. 200 strip 11 2 Active Blood Gluc Meter Disp-Strips (BLOOD GLUCOSE METER DISPOSABLE) DeviceIndications :Type 2 diabetes mellitus with hyperglycemia, without long-term current use of insulin ([facility] HHS/HCC) Use daily to check blood glucose. Okay to substitute. 200 each 11 3 Active Lancets MiscIndications:T ype 2 diabetes mellitus with hyperglycemia, without long-term current use of insulin ([facility]) Use daily to check blood glucose. Okay to substitute. 200 each 11 3 Active Blood Glucose Monitoring Suppl (D-CARE GLUCOMETER) w/Device KitIndications:Ty pe 2 diabetes mellitus with hyperglycemia, without long-term current use of insulin ([facility]) Use daily to check blood glucose. Okay to substitute. 1 kit 3 Active Insulin Pen Needle 32G X 4 MM MiscIndications:T ype 2 diabetes mellitus with hyperglycemia, without long-term current use of insulin ([facility]) Use daily to dispense insulin. 200 each 4 3 Active losartan (COZAAR) 100 MG tabletIndications :Primary hypertension Take 1 tablet (100 mg total) by mouth daily. 30 tablet 5 Active Insulin Glargine, 1 Unit Dial, (LINDA GUARDADO) 300 UNIT/ML Solution Pen-injectorIndic ations:Type 2 diabetes mellitus with hyperglycemia, without long-term current use of insulin ([facility]) Inject 18 Units into the skin daily. 1 mL 6 5 Active atorvastatin (LIPITOR) 80 MG tabletIndications :Hyperlipidemia associated with type 2 diabetes mellitus ([facility]) Take 1 tablet (80 mg total) by [...] hyperglycemia, without long-term current use of insulin ([facility]) Take 1 tablet (4 mg total) by mouth every 8 (eight) hours as needed. 20 tablet 5 Active semaglutide (OZEMPIC) 1 mg/dose injection (PEN)Indications: Diabetes Mellitus Inject 1 mg into the skin once a week. Indications: Diabetes 9 mL 5 Active empagliflozin (JARDIANCE) 25 MG tabletIndications :Type 2 diabetes mellitus with hyperglycemia, without long-term current use of insulin ([facility]) TAKE 1 TABLET(25 MG) BY MOUTH DAILY 90 tablet 5 Active Active Problems Problem Noted Date Diagnosed Date Esophageal dysphagia 03/11/2024 Heartburn 03/11/2024 Regurgitation of food 03/11/2024 Type 2 diabetes mellitus wit h hyperglycemia, without long-term current use of insulin ([facility]) 09/01/2022 Hyperlipidemia associated wi th type 2 diabetes mellitus ([facility]) 09/01/2022 Hypertension associated with type 2 diabetes mellitus ([facility]) 12/21/2018 Primary insomnia 11/20/2004 Anxiety [...] Comments Blood Pressure 123/84 12/24/2024 3:27 PM [facility] Pulse 85 12/24/2024 3:27 PM [facility] Temperature 36.5 C (97.7 F) 12/24/2024 3:27 PM [facility] Respiratory Rate 18 12/24/2024 3:27 PM [facility] Oxygen Saturation 99% 12/24/2024 3:27 PM [facility] Inhaled Oxygen Concentration - - Weight 86.8 kg (191 lb 6.4 oz) 12/24/2024 3:27 P M [facility] Height 154.9 cm (5' 1) 12/24/2024 3:27 PM [facility] Body Mass Index 36.16 12/24/2024 3:27 PM [facility] Plan of Treatment Health Maintenance Due Date [...] 09/14/2022 Hepatitis C Completed 08/02/2022 PHQ-2 (Physician [place]) Completed 12/24/2024 Meningococcal B Vaccine Aged Out [...] hyperglycemia, without long-term current use of insulin ([facility]/HCC) LIPID PANEL Routine 11/08/2024 7:14 AM [facility] Annual physical exam General medical exam Type [...] HEMOGLOBIN, GLYCOSYLATED (12/30/2024) HGB A1C 10.3 % [id number] [place] 12/30/2024 Abby Diego MD LABORATORY Final Result -[id number], [place] [address] [place] [address], * (ABNORMAL) LIPID PANEL (11/08/2024 7:14 AM [facility]) CHOLESTEROL 266(H) <200 MG/DL 11/08/2024 4:12 PM [facility] TRIGLYCERIDES 103 <150 MG/DL 11/08/2024 4:12 PM [facility] HDL 53 >40 MG/DL 11/08/2024 4:12 PM [facility] LDL-C 192(H) <100 MG/DL 11/08/2024 4:12 PM [facility] VLDL CALCULATION 21 5 - 28 MG/DL 11/08/2024 4:12 PM [facility] CHOL/HDL RATIO 5.0(H) 0.0 - 4.0 11/08/2024 4:12 PM [facility] LDL/HDL 3.6(H) 0.41 - 2.13 11/08/2024 4:12 PM [facility] NON HDL CHOLESTEROL 213(H) <140 MG/DL 11/08/2024 4:12 PM [facility] 11/08/2024 7:14 AM [facility] Abby Diego MD LABORATORY Final Result Performing Organization Address City/[facility]/ZIP Co de Phone Number [facility] [address] [place] [address], [place] [phone] * MAMMOGRAM (10/09/2023) Anatomical Region Laterality Modality Other [employer] Scanned SCANNING Final Resu lt * COLONOSCOPY GENERIC (09/14/2022) 09/14/2022 [employer] Scanned SCANNING Final Resu lt * HEPATITIS C ANTIBODY (08/02/2022 11:41 AM CDT) HEPATITIS C AB NON-REACTI VE NON-REACT [place] 08/02/2022 11:57 PM CDT [facility] Comment: ANTIBODIES TO HCV NOT DETECTED. DOES NOT EXCLUDE THE POSSIBILITY OF EXPOSURE TO HCV. 08/02/2022 11:4 1 AM CDT Abby Diego MD LABORATORY Final Result [facility] [address] [place] [address], [place] [phone] [id number] from Last 3 Months or Most Recently Relevant to Health Maintenance Insurance [facility] Care Teams Abrasive Wheel Molder Relationship Specialty Start Date End Date Abby Diego MD [address] [facility] [place] [address] PCP - General INTERNAL MEDICINE 08/02/22
--- OUTSIDE RECORDS SUMMARY | 2025-06-26 02:25 | XMS_ITS | Encounter Summary ---
Author Organization [facility] Address [address] [place] [address] Care Team Providers Care Senior Market Intelligence Consultant Name Role Phone Unavailable Primary Care Provider Unavailabl e Encounter Details Date Type Department Care Team (Late st Contact Info) Description 09/04/2000 Outpatient Historical [facility] Chan, Fahad Maravilla MD [address] [place] [phone] Unspecified ectopic (Primary Dx) Social History Tobacco Use Types Packs/Day Years Used Date Smoking Tobacco: Never Assessed Comments Unknown Sex and Gender Information Value Date Recorded Sex Assigned at Not on file 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
--- OUTSIDE RECORDS SUMMARY | 2025-06-26 02:25 | XMS_ITS | Encounter Summary ---
Author Organization [facility] Address 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
--- OUTSIDE RECORDS SUMMARY | 2025-06-26 02:25 | XMS_ITS | Encounter Summary ---
Author Organization [facility] Address [address] [place] [address] Care Team Providers Care Machine Packaging Technician Name Role Phone Abby Diego MD Primary Care Provider [phone] Encounter Details Date Type Department Care Team (Latest Contact Info) Description 07/04/[address] [facility] - [address] [address] [address] [place], [place] [id number] [facility] Provider FOLLOW UP [...] documented as of this encounter Care Teams Machine Packaging Technician Relationship Specialty Start Date End Date Abby Diego MD [address] [facility] [address] [place], [place] [id number] PCP - General INTERNAL MEDICINE 08/02/22 documented as of this encounter
--- OUTSIDE RECORDS SUMMARY | 2025-06-26 02:25 | XMS_ITS | Encounter Summary ---
Author Organization [facility] Address 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
--- OUTSIDE RECORDS SUMMARY | 2025-06-26 02:25 | XMS_ITS | Encounter Summary ---
Author Organization [facility] Address 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
--- OUTSIDE RECORDS SUMMARY | 2025-06-26 02:25 | XMS_ITS | Clinical Summary ---
Author Organization [facility] Address [address] [place] [address] Care Team Providers Care Barrel Bung Remover And Dumper Name Role Phone Arash Ennis MD Primary Care Provider Source Comments [facility],non-owned Affiliates and Associated Physician Practices is amultiple site organization consisting of ambulatory clinics and hospital sitesin [place], [place], [place] and [place]. This disclosure is being madepursuant to the Care Everywhere program and may not contain all information available regarding this patient. 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
--- OUTSIDE RECORDS SUMMARY | 2025-06-26 02:25 | XMS_ITS | Clinical Summary ---
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
[2025-06-26 02:40] LABS: Alanine Aminotransferase 19 U/L (6-35); Albumin Level 4.3 g/dL (3.5-5.1); Alkaline Phosphatase 158 U/L (38-126); Anion Gap 9 mmol/L (4-12); Aspartate Amino Transferase 25 U/L (14-36); Bilirubin,Total 0.9 mg/dL (0.2-1.3); Blood Urea Nitrogen 9 mg/dL (7-17); Calcium 9.1 mg/dL (8.4-10.2); Carbon Dioxide 25 mmol/L (22-30); Chloride 98 mmol/L (98-107); Estimated Glomerular Filt Rate > 60; Glucose 334 mg/dL (65-110); Lipase 65 U/L (23-300); Potassium 3.6 mmol/L (3.4-5.0); Sodium 132 mmol/L (137-145); Total Protein 8.1 g/dL (6.3-8.2)
[2025-06-26] MEDS: MORPHINE SULFATE (*CRX) 4 MG/ML INJ IV PUSH (02:44)
[2025-06-26] MEDS: ONDANSETRON INJ 4 MG/2 ML VIAL IV PUSH (02:44)
[2025-06-26] MEDS: DOXYCYCLINE HYCLATE 100 MG TABLET PO (05:05)
[2025-06-26] MEDS: PHENAZOPYRIDINE HCL 100 MG TABLET PO (05:05)
== END 2025-06-26 05:12 | disposition home or self-care (01) ==
PROVIDERS: Emergency Provider Student in an Organized Health Care Education/Training Program; PCP Internal Medicine
DX: R10.31 Right lower quadrant pain (principal); D72.829 Elevated white blood cell count, unspecified; N39.0 Urinary tract infection, site not specified; R73.9 Hyperglycemia, unspecified; J18.9 Pneumonia, unspecified organism; I10 Essential (primary) hypertension; Z79.85 Long-term (current) use of injectable non-insulin antidiabetic drugs
CPT/HCPCS: 36415; 74177; 80053; 81001; 81025; 83690; 85025; 96374; 96375; 99284; A9270; J2270; J2405; Q9967